=== PATIENT | male | born 1950 | race Caucasian/White ===

== ENCOUNTER → 2018-02-26 | Outpatient (CLI) | payer MEDICARE ==
--- NOTE | 2018-02-26 10:51 | RADIOLOGY REPORT (SQ) ---
EXAM DESCRIPTION: U/S THYROID/SFT TISS HD NECK COMPLETED DATE/TIME: 02/26/2018 10:42 am REASON FOR STUDY: LOCALIZED SWELLING, MASS AND LUMP, NEC (R22.1) R22.1 LOCALIZED SWELLING, MASS AND LUMP, NECK COMPARISON: None. TECHNIQUE: Dynamic and static grayscale images acquired of the localized site of clinical concern an d recorded on PACS. Additional selected color Doppler and spectral images recorded. SITE OF CONCERN: Left posterior neck. LIMITATIONS: None. FINDINGS: Circumscribed oval hypoechoic nodule in the subcutaneous tissues, measuring 1.0 x 1.6 x 2. 5 cm. Echogenicity similar to the adjacent fatty tissue. No vascularity on Doppler imaging. IMPRESSION: OVAL HYPOECHOIC NODULE IN THE SUBCUTANEOUS TISSUES WHICH HAS APPEARANCE OF A SIMPLE LIPO MA. TECHNICAL DOCUMENTATION: JOB ID: [id number] [employer]- All Rights Reserved Reading location - IP/workstation name: [email or web address]
== END ==
LOC: RAD 09:13
PROVIDERS: ATTEND Family Medicine
DX: R22.1 Localized swelling, mass and lump, neck (principal)
CPT/HCPCS: 76536

== ENCOUNTER → 2018-05-27 | Outpatient (CLI) | payer MEDICARE ==
--- NOTE | 2018-05-27 13:27 | RADIOLOGY REPORT (SQ) ---
EXAM DESCRIPTION: CT ABD/PELVIS NO ORAL OR IV COMPLETED DATE/TIME: 05/27/2018 10:31 am REASON FOR STUDY: R10.9 UNSPECIFIED ABDOMINAL PAIN R10.9 UNSPECIFIED ABDOMINAL PAIN COMPARISON: None. TECHNIQUE: CT scan of the abdomen and pelvis performed without intravenous or oral contrast. Images reviewed with lung, soft tissue, and bone windows. Reconstructed coronal and sagittal MPR images revi ewed. All images stored on PACS. All CT scanners at this facility use dose modulation, iterative reconstruction, and/or weight based d osing when appropriate to reduce radiation dose to as low as reasonably achievable (ALARA). [facility]: Dose Right [facility]: CareDose [facility]: Dose Right [facility]: Teradose 4D [facility]: [employer] RADIATION DOSE: CT Rad equipment meets quality standard of care and radiation dose reduction techniq ues were employed. CTDIvol: 5.5 mGy. DLP: 277 mGy-cm.mGy. LIMITATIONS: None. FINDINGS: LOWER CHEST: No significant findings. No nodules or infiltrates. NON-CONTRASTED LIVER, SPLEEN, ADRENALS: Evaluation limited by lack of IV contrast. No identified sign ificant masses. PANCREAS: No masses. No peripancreatic inflammatory changes. GALLBLADDER: Cholelithiasis. No secondary evidence of acute cholecystitis. RIGHT KIDNEY AND URETER: No suspicious masses. Assessment limited by lack of IV contrast. No signif icant calcifications. No hydronephrosis or hydroureter. LEFT KIDNEY AND URETER: No suspicious masses. Assessment limited by lack of IV contrast. No signifi cant calcifications. No hydronephrosis or hydroureter. AORTA AND RETROPERITONEUM: No aneurysm. No retroperitoneal masses or adenopathy. BOWEL AND PERITONEAL CAVITY: No focal bowel wall thickening. No evidence of intestinal obstruction. Scattered colonic diverticula. APPENDIX: Normal. PELVIS, BLADDER, AND ABDOMINAL WALL:No abnormal masses. No free fluid. Bladder normal. Small fact co ntaining inguinal hernias, right greater than left. BONES: No acute bony abnormality. No suspicious osseous lesions. Lower lumbar facet arthropathy. OTHER: No other significant finding. IMPRESSION: 1. No evidence of acute intra-abdominal/pelvic process. 2. Cholelithiasis without secondary evidence of acute cholecystitis. 3. Additional chronic findings as above. COMMENT: Quality ID # [id number]: Final reports with documentation of one or more dose reduction techniques (e.g., Automated exposure control, adjustment of the mA and/or kV according to patient size, use of iterative reconstruction technique) TECHNICAL DOCUMENTATION: JOB ID: [id number] [employer]- All Rights Reserved Reading location - IP/workstation name: [email or web address]
== END ==
LOC: RAD 10:42
PROVIDERS: ATTEND Family Medicine
DX: R10.9 Unspecified abdominal pain (principal)
CPT/HCPCS: 74176

== ENCOUNTER 2018-08-05 10:09 | Day surgery (SDC) | payer MEDICARE ==
[~2018-08-05 10:09] MED LIST: BUPIVACAINE HCL 0.75% INJ/PF (7.5 MG/1 ML) 10 ML SDV OS PRN; KETOROLAC TROMETHAMINE 0.45% 4 DROP/0.4 ML DROPERETTE OS PRN; LIDOCAINE 4% INJ/PF (40 MG/ML) 5 ML AMPUL OS PRN
[2018-08-05] MEDS: CYCLOPENTOLATE 0.2%/PHENYLEPHRINE 1% OPH SOLN 2 ML OS PRN ×3 (11:11→11:34)
[2018-08-05] MEDS: TROPICAMIDE 1% OPH SOLN 3 ML OS PRN ×3 (11:11→11:34)
[2018-08-05] MEDS: BESIFLOXACIN HCL 0.6% OPH SUSP 5 ML BOTTLE OS PRN ×4 (11:12→12:02)
[2018-08-05] MEDS: TETRACAINE HCL 0.5% OPH SOLN 0.6 ML DROPERETTE OS PRN ×4 (11:13→11:39)
[2018-08-05] MEDS ORDERED: MIDAZOLAM 2 MG/2 ML INJ ONE (11:30)
[2018-08-05] MEDS: CHONDR SU A NA/HYALUR INTRAOC KIT (SURGICARE) ONE ×2 (11:51)
[2018-08-05] MEDS: LIDOCAINE 1% INJ-PF (10 MG/ML) 30 ML SDV ONE ×2 (11:51)
[2018-08-05] MEDS: EPINEPHRINE INJ/PF 1 MG/1 ML AMPULE ONE ×2 (11:51)
[2018-08-05] MEDS: TOBRAMYCIN SULFATE/DEXAMETH OPH OINTMENT 3.5 GM ONE ×2 (12:02)
[2018-08-05] MEDS: DORZOLAMIDE HCL 2%/TIMOLOL MALEAT 0.5% OPH SOLN 10 ML OS PRN ×2 (12:02)
== END 2018-08-05 12:41 | disposition home or self-care (01) ==
LOC: SC 10:09
PROVIDERS: ATTEND Ophthalmology
DX: H25.12 Age-related nuclear cataract, left eye (principal); Z98.42 Cataract extraction status, left eye; E11.9 Type 2 diabetes mellitus without complications; I10 Essential (primary) hypertension; E78.00 Pure hypercholesterolemia, unspecified; R01.1 Cardiac murmur, unspecified; I49.9 Cardiac arrhythmia, unspecified; Z79.4 Long term (current) use of insulin; Z79.82 Long term (current) use of aspirin; Z79.899 Other long term (current) drug therapy
CPT/HCPCS: 66984; 82962; 00142; V2787; J2250; J3490 ×3; A9270; J0171; 142

== ENCOUNTER 2018-08-26 07:38 | Day surgery (SDC) | payer MEDICARE ==
[~2018-08-26 07:38] MED LIST changes: +BUPIVACAINE HCL 0.75% INJ/PF (7.5 MG/1 ML) 10 ML SDV OD PRN; -BUPIVACAINE HCL 0.75% INJ/PF (7.5 MG/1 ML) 10 ML SDV OS PRN; +CHONDR SU A NA/HYALUR INTRAOC KIT (SURGICARE) ONE; +DORZOLAMIDE HCL 2%/TIMOLOL MALEAT 0.5% OPH SOLN 10 ML OD PRN; +EPINEPHRINE INJ/PF 1 MG/1 ML AMPULE ONE; +KETOROLAC TROMETHAMINE 0.45% 4 DROP/0.4 ML DROPERETTE OD PRN; -KETOROLAC TROMETHAMINE 0.45% 4 DROP/0.4 ML DROPERETTE OS PRN; +LIDOCAINE 1% INJ-PF (10 MG/ML) 30 ML SDV ONE; +LIDOCAINE 4% INJ/PF (40 MG/ML) 5 ML AMPUL OD PRN; -LIDOCAINE 4% INJ/PF (40 MG/ML) 5 ML AMPUL OS PRN; +TOBRAMYCIN SULFATE/DEXAMETH OPH OINTMENT 3.5 GM ONE
[2018-08-26] MEDS: CYCLOPENTOLATE 0.2%/PHENYLEPHRINE 1% OPH SOLN 2 ML OD PRN ×3 (08:47→09:16)
[2018-08-26] MEDS: TROPICAMIDE 1% OPH SOLN 3 ML OD PRN ×3 (08:47→09:16)
[2018-08-26] MEDS: BESIFLOXACIN HCL 0.6% OPH SUSP 5 ML BOTTLE OD PRN ×3 (08:48→09:50)
[2018-08-26] MEDS: TETRACAINE HCL 0.5% OPH SOLN 0.6 ML DROPERETTE OD PRN ×3 (08:49→09:26)
[2018-08-26] MEDS ORDERED: MIDAZOLAM 2 MG/2 ML INJ ONE (09:56)
== END 2018-08-26 10:24 | disposition home or self-care (01) ==
LOC: SC 07:38
PROVIDERS: ATTEND Ophthalmology
DX: H25.11 Age-related nuclear cataract, right eye (principal); Z98.42 Cataract extraction status, left eye; E78.00 Pure hypercholesterolemia, unspecified; I10 Essential (primary) hypertension; E11.9 Type 2 diabetes mellitus without complications; R06.02 Shortness of breath; I25.10 Atherosclerotic heart disease of native coronary artery without angina pectoris; I49.9 Cardiac arrhythmia, unspecified; R01.1 Cardiac murmur, unspecified; Z79.899 Other long term (current) drug therapy; Z79.82 Long term (current) use of aspirin; Z79.4 Long term (current) use of insulin; Z79.84 Long term (current) use of oral hypoglycemic drugs
CPT/HCPCS: 82962; 00142; 66984; V2632; J2250; J3490 ×3; A9270; J0171; 142

== ENCOUNTER → 2019-11-16 | Outpatient (CLI) | payer MEDICARE ==
[2019-11-16 09:45] LABS: ABSOLUTE LYMPHOCYTES (AUTO) 1.3 10^3/uL (0.5-4.7); ABSOLUTE MONOCYTES (AUTO) 0.4 10^3/uL (0.1-1.4); ABSOLUTE NEUT (AUTO) 3.1 10^3/uL (1.7-8.2); BASOPHILS % (AUTO) 0.7 % (0-2); EOSINOPHILS % (AUTO) 0.9 % (0-6); HEMOGLOBIN 13.8 g/dL (13.5-17.0); LYMPHOCYTES % (AUTO) 26.5 % (13-45); MEAN CORPUSCULAR HGB CONC 34.4 g/dL (32.0-36.0); MEAN CORPUSCULAR VOLUME 96 fl (80-97); MONOCYTES % (AUTO) 8.1 % (3-13); PLATELET COUNT 118 10^3/uL (150-450); RED BLOOD COUNT 4.17 10^6/uL (4.35-5.55); RED CELL DISTRIBUTION WIDTH 13.8 % (11.5-14.0); SEGMENTED NEUTROPHILS % (AUTO) 63.8 % (42-78); TOTAL CELLS COUNTED % (AUTO) 100 %; WHITE BLOOD COUNT 4.9 10^3/uL (4.0-10.5)
[2019-11-16 10:06] LABS: ALBUMIN 4.5 g/dL (3.5-5.0); ALKALINE PHOSPHATASE 59 U/L (38-126); ANION GAP 13 (5-19); ASPARTATE AMINO TRANSFERASE 73 U/L (17-59); BILIRUBIN,DIRECT 0.4 mg/dL (0.0-0.4); BLOOD UREA NITROGEN 24 mg/dL (7-20); CALCIUM 9.6 mg/dL (8.4-10.2); CARBON DIOXIDE 27 mmol/L (22-30); CHLORIDE 100 mmol/L (98-107); CHOLESTEROL 159.62 mg/dL (0-200); GLUCOSE 138 mg/dL (75-110); POTASSIUM 4.4 mmol/L (3.6-5.0); TOTAL PROTEIN 7.4 g/dL (6.3-8.2); TRIGLYCERIDES 86 mg/dL (<150)
[2019-11-16 10:18] LABS: DIRECT LDL 90 mg/dL (<100)
[2019-11-17 11:38] LABS: CREATININE URINE 229.1 mg/dL (Not Estab.); MICROALBUMIN URINE 22.4 ug/mL (Not Estab.)
== END ==
LOC: OD 08:22
PROVIDERS: ATTEND Family Medicine
DX: E78.5 Hyperlipidemia, unspecified (principal); E11.51 Type 2 diabetes mellitus with diabetic peripheral angiopathy without gangrene; E55.9 Vitamin D deficiency, unspecified; Z79.82 Long term (current) use of aspirin; Z79.899 Other long term (current) drug therapy
CPT/HCPCS: 36415; 80053; 80061; 82043; 82306; 82570; 83036; 85025

== ENCOUNTER 2019-11-18 10:34 | Observation (INO) | payer MEDICARE ==
[2019-11-18] MEDS ORDERED: METOPROLOL TARTRATE PF/INJ 5 MG/5 ML SDV IV ONE (11:07)
--- NOTE | 2019-11-18 11:18 | ER Document Report ---
ED General - General Chief Complaint: Irregular Pulse Stated Complaint: LIGHTHEADED,FAST HEART RATE Time Seen by Provider: 11/18/19 10:48 Primary Care Provider: CHIQUIS FIERRO MD [ACTIVE STAFF] - Follow up as needed TRAVEL OUTSIDE OF THE [place] IN LAST 30 DAYS: No - HPI Notes: Chief complaint: Tachycardia History of present illness: 69-year-old male seen at this time for evaluation of tachycardia. This gentleman is 6 years status post aortic valve replacement with a tissue valve [facility]. He subsequently was readmitted to [place] with a bowel obstruction requiring exploratory laparotomy and at that time he had an episode of paroxysmal atrial flutter. He has had no recurrence of problems until now. Patient was in for a visit with his primary care physician, Dr. Fierro and when he got to the office today was noted to be tachycardic at a rate of about 160 although he was asymptomatic with this. They recorded an EKG in the office and felt that this was atrial flutter and sent him directly to the emergency department. Patient denies: Chest pain, shortness of breath, cough, fever, nausea/vomiting, diarrhea. Good oral intake. Denies any history of thyroid problems. Patient says he consumes 2 to 4 ounces of alcohol per day. He denies any drug use. He has never been a cigarette smoker. Patient is taking an unknown dose of metoprolol at home. He is also on aspirin. He is not on any other type of anticoagulant. Denies any other cardiac medications. 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 He sees a pain management doctor and has been taking "some muscle relaxers" and has received steroid injections from them also. Current medications per primary care physician: Aspirin 81 mg daily Tylenol 325 as needed Vitamin D 2000 units daily Tizanidine 4 mg twice daily as needed subcu weekly as directed Artificial tears as needed Metoprolol succinate ER 25 mg daily Pioglitazone 45 mg every morning Patient indicates local methods engineer is Dr. Heri Guadalupe. - Related Data Allergies/Adverse Reactions: codeine Allergy (Verified 08/03/18 14:42) losartan Allergy (Verified 08/03/18 14:42) metformin Allergy (Verified 08/03/18 14:42) naproxen Allergy (Verified 08/03/18 14:42) Past Medical History - General Information source: Patient, Dr. Rodas, [facility] Records - Social History Smoking Status: Never Smoker Frequency of alcohol use: Social Drug Abuse: None Lives with: Spouse/Significant other Family History: Reviewed & Not Pertinent - Past Medical History Cardiac Medical History: Reports: Hx Hypertension - MEDICATED Denies: Hx Heart Attack Pulmonary Medical History: Reports: None Denies: Hx Asthma Neurological Medical History: Reports: None. Denies: Hx Cerebrovascular Accident, Hx Seizures Endocrine Medical History: Reports: Hx Diabetes Mellitus Type 2. Denies: Hx Hyperthyroidism, Hx Hypothyroidism Malignancy Medical History: Reports Hx Skin Cancer GI Medical History: Reports: Other - Previous bowel obstruction. Denies: Hx Hepatitis, Hx Hiatal Hernia, Hx Ulcer Musculoskeletal Medical History: Reports Hx Arthritis Skin Medical History: Reports Other - Treatment for precancerous lesions facial area by dermatology Psychiatric Medical History: Reports: None Infectious Medical History: Denies: Hx Hepatitis Past Surgical History: Reports: Hx Bowel Surgery, Hx Cardiac Surgery. Denies: Hx Open Heart Surgery, Hx Pacemaker Review of Systems - Review of Systems Notes: Constitutional: Negative for fever. HENT: Negative for sore throat. Eyes: Negative for visual changes. Cardiovascular: Negative for chest pain. Respiratory: Negative for shortness of breath. Gastrointestinal: Negative for abdominal pain, vomiting or diarrhea. Genitourinary: Negative for dysuria. Musculoskeletal: Chronic back pain. Skin: Facial precancerous lesions under treatment with topical fluorouracil. Neurological: Negative for headaches, focal weakness. Recent tingling of lower extremities attributed to diabetic peripheral neuropathy. 10 point ROS negative except as marked above and in HPI. Physical Exam - Vital signs Vitals: Resp Pulse Ox 25 H 99 11/18/19 10:51 11/18/19 10:51 - Notes Notes: GENERAL: Well-developed well-nourished male approximately stated age appearing in no acute distress. SKIN: Chronic hypopigmentation over the forehead area related to actinic change. Good turgor no rashes. HEAD: Normocephalic atraumatic. EYES: PERRLA. EOMI. Conjunctivae and sclerae clear. EARS: CANALS AND TMS CLEAR. NOSE: CLEAR. MOUTH: Moist mucosa. Good dentition. No stridor or edema. No drooling. NECK: Supple. No masses or thyromegaly. No adenopathy. Carotids 2+ without bruits. No JVD. BACK: Symmetrical without tenderness. CHEST: Respirations unlabored. Breath sounds clear and symmetrical. HEART: Tachycardic regular rhythm. No murmur gallop or rub. Surgical scar right anterior chest area. ABDOMEN: Surgical scar present. Soft nontender without masses, organomegaly or rebound. Bowel sounds normally active. No bruits. GENITALIA: Deferred. EXTREMITIES: Moderate degenerative changes intra-phalangeal joints of both hands. No edema. No calf tenderness. Cap refill less than 1.5 seconds. Dorsalis pedis and posterior tibial pulses 3+ and symmetrical. NEUROLOGICAL: GCS 15. Alert and oriented x3. Normal gait. Fluent speech. Cranial nerves II through XII intact. Sensorimotor and cerebellar normal. Normal tone. PSYCHIATRIC: Appropriate affect. Course - Re-evaluation Re-evalutation: 11/18/19 11:43 Valsalva failed to slow his rate. Adenosine produced transient ventricular slowing revealing atrial fibrillation his underlying rhythm. He was given 15 mg of metoprolol IV. This also did not slow his rate. His blood pressures mildly elevated 155/97. We going to give him some IV diltiazem at this time. 11/18/19 12:13 11/18/19 12:53 Remains in atrial fibrillation/flutter but he now has a controlled ventricular rate of 84. We note that his magnesium level is 1.5 and he will be given some IV magnesium supplementation. We are still awaiting completion of other pending lab studies at this time. Patient is currently asymptomatic. 11/18/19 14:31 Patient been back and forth with a high heart rate up to 160. Now on 15 mg/h of diltiazem. I also have given him IV magnesium and he got a dose of digoxin 0.25 mg IV. Currently his ventricular rate is 80 although he remains in atrial fib. He remains asymptomatic. Patient's thyroid profile is normal. His transaminase values are mildly elevated and his magnesium was low at 1.5. Aced on his history I think is primarily a "holiday heart syndrome" agitation probably related to recent incre ase in alcohol intake. His troponin was minimally elevated but not reaching the threshold for myocardial injury. I have paged his methods engineer Dr. Guadalupe review findings with him. They are to speak with the hospitalist regarding admission. - Vital Signs Vital signs: Temp Pulse Resp BP Pulse Ox 16 101/65 97 11/18/19 13:20 11/18/19 13:20 11/18/19 13:20 - Laboratory Result Diagrams: 11/18/19 10:58 11/18/19 10:58 Laboratory results interpreted by me: 11/18/19 11/18/19 11/18/19 10:58 10:58 10:58 RBC 4.34 L MCH 33.5 H Plt Count 132 L Glucose 139 H Magnesium 1.5 L Direct Bilirubin 0.5 H AST 63 H ALT 58 H NT-Pro-B Natriuret Pep 2260 H - EKG Interpretation by Me Additional EKG results interpreted by me: 11/18/19 11:26 Twelve-lead EKG reviewed by me contemporaneously: 1044 hrs. Indication for study: Tachycardia Rhythm: Narrow complex tachycardia differential diagnosis to include atrial flutter with 2-1 block, atrial fibrillation with regularization, SVT Rate: Ventricular 162 Intervals: QRS interval 80 ms QRS axis: [address]/T wave changes: Minor repolarization changes which are probably rate related Comparison with prior tracing: None available Interpretation: Narrow complex tachycardia 11/18/19 14:49 EKG #2 Twelve-lead EKG reviewed by me contemporaneously: 1239 hours Indication for study: Tachycardia Rhythm: Atrial flutter with 4 1 block Rate: 81 Intervals: Normal QRS axis: +[address]/T wave changes: Nonspecific inferior T wave changes Comparison with prior tracing: Difficult slowing of rate since earlier study 1044 hrs. today Interpretation: Atrial flutter with controlled ventricular response Critical Care Note - Critical Care Note Total time excluding time spent on procedures (mins): 90 - Valsalva x3 with no improvement. Adenosine IV revealed underlying atrial fibrillation. She was subsequently given IV metoprolol with no slowing of rate. He will be treated with IV push and drip of diltiazem. Discharge - Discharge Clinical Impression: Atrial fibrillation with RVR new onset, Hypomagnesemia, Holiday heart syndrome Alcoholic hepatitis Qualifiers: Ascites presence: without ascites Qualified Code(s): K70.10 - Alcoholic hepatitis without ascites Condition: Good Disposition: ADMITTED INPATIENT Admitting Provider: Kiki (Hospitalist) Unit Admitted: Telemetry Referrals: CHIQUIS FIERRO MD [ACTIVE STAFF] - Follow up as needed
[2019-11-18] MEDS ORDERED: DILTIAZEM HCL INJ 25 MG/5 ML VIAL IV ONE ×3 (11:44→13:39)
[2019-11-18] MEDS ORDERED: ADENOSINE INJ/PF 6 MG/2 ML SDV IV ONE ×3 (11:55→12:18)
--- NOTE | 2019-11-18 12:17 | RADIOLOGY REPORT (SQ) ---
EXAM DESCRIPTION: CHEST SINGLE VIEW IMAGES COMPLETED DATE/TIME: 11/18/2019 11:37 am REASON FOR STUDY: Atrial flutter COMPARISON: None. EXAM PARAMETERS: NUMBER OF VIEWS: One view. TECHNIQUE: Single frontal radiographic view of the chest acquired. RADIATION DOSE: NA LIMITATIONS: None. FINDINGS: LUNGS AND PLEURA: No opacities, masses or pneumothorax. No pleural effusion. MEDIASTINUM AND HILAR STRUCTURES: No masses. Contour normal. HEART AND VASCULAR STRUCTURES: Heart normal in size. Normal vasculature. BONES: No acute findings. HARDWARE: Sternotomy wires. OTHER: No other significant finding. IMPRESSION: NO ACUTE RADIOGRAPHIC FINDING IN THE CHEST. TECHNICAL DOCUMENTATION: JOB ID: [id number] 2010 [employer]- All Rights Reserved Reading location - IP/workstation name: [email or web address]
[2019-11-18 12:18] LABS: ABSOLUTE LYMPHOCYTES (AUTO) 1.2 10^3/uL (0.5-4.7); ABSOLUTE MONOCYTES (AUTO) 0.6 10^3/uL (0.1-1.4); ABSOLUTE NEUT (AUTO) 4.3 10^3/uL (1.7-8.2); BASOPHILS % (AUTO) 0.6 % (0-2); EOSINOPHILS % (AUTO) 0.5 % (0-6); HEMATOCRIT 41.6 % (37.9-51.0); HEMOGLOBIN 14.5 g/dL (13.5-17.0); MEAN CORPUSCULAR HEMOGLOBIN 33.5 pg (27.0-33.4); MEAN CORPUSCULAR VOLUME 96 fl (80-97); PLATELET COUNT 132 10^3/uL (150-450); RED BLOOD COUNT 4.34 10^6/uL (4.35-5.55); RED CELL DISTRIBUTION WIDTH 13.8 % (11.5-14.0); SEGMENTED NEUTROPHILS % (AUTO) 68.9 % (42-78); TOTAL CELLS COUNTED % (AUTO) 100 %; WHITE BLOOD COUNT 6.2 10^3/uL (4.0-10.5)
[2019-11-18] MEDS ORDERED: NORMAL SALINE 1000 ML 1,000 ML IV ONE (12:19)
[2019-11-18] MEDS: DILTIAZEM HCL/D5W 125 MG/125 ML RTUINJ IV PRN ×2 (12:28→20:43)
[2019-11-18 12:33] LABS: PROTHROMBIN TIME 14.4 SEC (11.4-15.4)
[2019-11-18 12:34] LABS: PARTIAL THROMBOPLASTIN TIME 32.9 SEC (23.5-35.8)
[2019-11-18 12:36] LABS: ALBUMIN 4.7 g/dL (3.5-5.0); ALKALINE PHOSPHATASE 70 U/L (38-126); ANION GAP 12 (5-19); ASPARTATE AMINO TRANSFERASE 63 U/L (17-59); BILIRUBIN,DIRECT 0.5 mg/dL (0.0-0.4); BILIRUBIN,TOTAL 1.2 mg/dL (0.2-1.3); BLOOD UREA NITROGEN 19 mg/dL (7-20); CALCIUM 9.8 mg/dL (8.4-10.2); CARBON DIOXIDE 26 mmol/L (22-30); CHLORIDE 101 mmol/L (98-107); GLUCOSE 139 mg/dL (75-110); POTASSIUM 4.3 mmol/L (3.6-5.0); TOTAL PROTEIN 7.8 g/dL (6.3-8.2)
[2019-11-18 12:37] LABS: ALCOHOL < 10 mg/dL (NONE DETECTED)
[2019-11-18] MEDS ORDERED: MAGNESIUM SULFATE/D5W 1 GM/100 ML RTUPB IV ONE ×2 (12:52→16:30)
[2019-11-18 12:56] LABS: TROPONIN I 0.042 ng/mL
[2019-11-18] MEDS ORDERED: DIGOXIN INJ 0.5 MG/2 ML AMPULE IV ONE ×2 (13:38→20:17)
[2019-11-18] MEDS ORDERED: METOPROLOL TARTRATE PF/INJ 5 MG/5 ML SDV IV PRN (15:36)
[2019-11-18] MEDS ORDERED: LORAZEPAM INJ 2 MG/1 ML VIAL IV PRN (15:36)
[2019-11-18] MEDS ORDERED: HYDRALAZINE HCL INJ/PF 20 MG/1 ML SDV IV PRN (15:36)
[2019-11-18 15:41] LABS: APPEARANCE,URINE CLEAR; BILIRUBIN,URINE NEGATIVE (NEGATIVE); COLOR,URINE YELLOW; GLUCOSE, URINE NEGATIVE (NEGATIVE); KETONES,URINE TRACE mg/dL (NEGATIVE); PROTEIN,URINE NEGATIVE (NEGATIVE); URINE SPECIFIC GRAVITY 1.018
[2019-11-18] MEDS ORDERED: GLUCAGON,HUMAN RECOMB 1 MG INJ IM PRN (15:41)
[2019-11-18] MEDS ORDERED: DEXTROSE 40% GEL 15 GM TUBE PO PRN ×2 (15:41)
[2019-11-18] MEDS ORDERED: DEXTROSE 50%-WATER 25 GM/50 ML DISP.SYRIN IV PRN ×2 (15:41)
--- NOTE | 2019-11-18 15:44 | PDOC H&P ---
History of Present Illness History of Present Illness: LISA POWERS is a 69 year old male past medical history of atrial fibrillation status post ablation a year ago at Counts include [facility] beds at the [facility], history of bicuspid aortic valve status post aortic valve replacement x1 year, history of aortic aneurysm, diabetes, EtOH abuse, who was sent to ED by his PCP after being found having an abnormal heart rate. Patient is stating that occasionally he feels lightheaded otherwise denies any palpitation, chest pain, syncope, presyncope, nausea, vomiting, headache, focal neurological symptoms, diarrhea, constipation. In ED he was noted to be in supraventricular tachycardia, was given adenosine and was noted to have underlying A. fib RVR, was given multiple doses of digoxin which controlled his rate and was started on Cardizem drip, hospitalist consulted for admission. His quality assurance coach Dr. Guadalupe was also consulted who has agreed to see him. Past Medical History Cardiac Medical History: Reports: Hyperlipidema, Hypertension - MEDICATED Denies: Myocardial Infarction Pulmonary Medical History: Reports: None Denies: Asthma Neurological Medical History: Reports: None Denies: Seizures Endocrine Medical History: Reports: Diabetes Mellitus Type 2 Denies: Hyperthyroidism, Hypothyroidism Malignancy Medical History: Reports: Skin Cancer GI Medical History: Reports: Other - Previous bowel obstruction Denies: Hepatitis, Hiatal Hernia Musculoskeltal Medical History: Reports: Arthritis Skin Medical History: Reports: Other - Treatment for precancerous lesions facial area by dermatology Psychiatric Medical History: Reports: None Hematology: Denies: Anemia, Sickle Cell Disease Past Surgical History Past Surgical History: Reports: Orthopedic Surgery - finger,elbow Denies: Pacemaker Social History Lives with: Spouse/Significant other Smoking Status: Never Smoker Family History Family History: Reviewed & Not Pertinent Parental Family History Reviewed: Yes Children Family History Reviewed: Yes Sibling(s) Family History Reviewed.: Yes Medication/Allergy Home Medications: Acetaminophen [Tylenol 325 mg Tablet] 650 mg PO Q6HP PRN 08/03/18 Aspirin [Ecotrin] 81 mg PO DAILY 08/03/18 Cholecalciferol (Vitamin D3) [Vitamin D3 2000 unit Tablet] 2,000 unit PO DAILY 08/03/18 Dulaglutide [Trulicity] 1.5 mg SQ Q7D 08/03/18 Pioglitazone HCl 45 mg PO QAM 08/03/18 Tizanidine HCl [Zanaflex] 4 mg PO Q8HP PRN 08/03/18 Metoprolol Succinate [Toprol Xl 25 mg Tab.sr] 25 mg PO DAILY 11/18/19 Allergies/Adverse Reactions: codeine Allergy (Verified 08/03/18 14:42) losartan Allergy (Verified 08/03/18 14:42) metformin Allergy (Verified 08/03/18 14:42) naproxen Allergy (Verified 08/03/18 14:42) Review of Systems Review of Systems: as per hpi Physical Exam Vital Signs: Temp Pulse Resp BP Pulse Ox 16 101/65 97 11/18/19 13:20 11/18/19 13:20 11/18/19 13:20 Intake & Output 11/17/19 11/18/19 11/19/19 06:59 06:59 06:59 Intake Total 1108 Balance 1108 Weight 80.286 kg General appearance: PRESENT: no acute distress, well-developed, well-nourished Head exam: PRESENT: atraumatic, normocephalic Respiratory exam: PRESENT: clear to auscultation evan. ABSENT: rales, rhonchi, wheezes Cardiovascular exam: PRESENT: irregular rhythm. ABSENT: diastolic murmur, rubs, systolic murmur GI/Abdominal exam: PRESENT: normal bowel sounds, soft. ABSENT: distended, guarding, mass, organolmegaly, rebound, tenderness Neurological exam: PRESENT: alert, awake, oriented to person, oriented to place, oriented to time, oriented to situation, CN II-XII grossly intact. ABSENT: motor sensory deficit Results Laboratory Results: 11/18/19 10:58 11/18/19 10:58 11/18/19 11/18/19 11/18/19 10:58 10:58 10:58 WBC 6.2 RBC 4.34 L Hgb 14.5 Hct 41.6 MCV 96 MCH 33.5 H MCHC 35.0 RDW 13.8 Plt Count 132 L Seg Neutrophils % 68.9 Sodium 138.6 Potassium 4.3 Chloride 101 Carbon Dioxide 26 Anion Gap 12 BUN 19 Creatinine 0.93 Est GFR ( Amer) > 60 Glucose 139 H Calcium 9.8 Magnesium 1.5 L Total Bilirubin 1.2 AST 63 H Alkaline Phosphatase 70 Total Protein 7.8 Albumin 4.7 TSH 1.07 11/18/19 10:58 Troponin I 0.042 NT-Pro-B Natriuret Pep 2260 H Impressions: Chest X-Ray 11/18/19 11:09 IMPRESSION: NO ACUTE RADIOGRAPHIC FINDING IN THE CHEST. Assessment and Plan - Diagnosis (1) Atrial fibrillation Qualifiers: Atrial fibrillation type: paroxysmal Qualified Code(s): I48.0 - Paroxysmal atrial fibrillation Is this a current diagnosis for this admission?: Yes Plan: History of atrial fibrillation status post ablation. Currently on beta-blockers, not anticoagulated. Admit to IMCU, Cardizem drip, PRN metoprolol, weight dosed Lovenox, 2D echo, cardiology consult. (2) Elevated troponin Is this a current diagnosis for this admission?: Yes Plan: Denies any history of CAD. Denies any chest pain palpitation or lighth eadedness. Likely due to demand mismatch. Antiplatelets, beta-blockers, MOUNA, statins, trend troponins. (3) Aortic valve replaced Is this a current diagnosis for this admission?: Yes Plan: History of bicuspid aortic valve, status post aortic bioprosthetic valve replacement. Denies any chest or palpitation, denies any syncope or presyncope. Outpatient PCP and cardiology follow-up. (4) ETOH abuse Is this a current diagnosis for this admission?: Yes Plan: Denies any history of alcohol intoxication or hospitalization for EtOH abuse. Thiamine, folic acid, multivitamin, benzodiazepines, DT precautions. (5) Diabetes Qualifiers: Diabetes mellitus type: type 2 Is this a current diagnosis for this admission?: Yes Plan: Diabetic diet, sliding scale insulin, basal and prandial insulin. Accu-Chek. Hypoglycemia protocol. Outpatient PCP and cardio follow-up. - Time Time Spent with patient: 35 or more minutes Medications reviewed and adjusted accordingly: Yes Anticipated Discharge Disposition: Home, Self Care Anticipated Discharge Timeframe: within 72 hours
[2019-11-18] MEDS ORDERED: MULTIVITAMIN (INFANT) DROPS 50 ML PO SCH (15:45)
[2019-11-18] MEDS ORDERED: MULTIVITAMIN ORAL LIQUID 60 ML PO SCH (15:45)
[2019-11-18 15:57] LABS: URINE AMPHETAMINES SCREEN NEGATIVE; URINE BARBITURATES SCREEN NEGATIVE; URINE BENZODIAZEPINES SCREEN NEGATIVE; URINE COCAINE SCREEN NEGATIVE; URINE MARIJUANA (THC) SCREEN NEGATIVE; URINE METHADONE SCREEN NEGATIVE; URINE PHENCYCLIDINE SCREEN NEGATIVE
[2019-11-18 16:15] LABS: CHOLESTEROL 157.37 mg/dL (0-200); TRIGLYCERIDES 75 mg/dL (<150)
[2019-11-18 16:27] LABS: DIRECT LDL 88 mg/dL (<100)
[2019-11-18] MEDS: INSULIN LISPRO 100 UNIT/ML 3 ML VIAL SUBCUT SCH ×2 (17:12→21:52)
[2019-11-18] MEDS: FOLIC ACID 1 MG TABLET PO SCH (17:20)
[2019-11-18] MEDS: ASPIRIN 81 MG TABLET, CHEWABLE PO SCH (17:20)
[2019-11-18] MEDS: THIAMINE HCL 100 MG TABLET PO SCH (17:20)
[2019-11-18] MEDS: ENOXAPARIN SODIUM INJ 80 MG/0.8 ML DISP.SYRIN SUBCUT SCH (17:20)
[2019-11-18] MEDS: MULTIVITAMIN TABLET PO SCH (17:20)
[2019-11-18] MEDS: NORMAL SALINE 1000 ML 1,000 ML IV PRN (17:57)
--- NOTE | 2019-11-18 19:22 | EKG REPORT ---
SEVERITY:- ABNORMAL ECG - A-FLUTTER W/ PREDOM 4:1 AV BLOCK, A-RATE 326 NONSPECIFIC T ABNORMALITIES, INFERIOR LEADS : Confirmed by: Ami Matt MD 18-Nov-2019 19:21:56
--- NOTE | 2019-11-18 19:24 | EKG REPORT ---
SEVERITY:- ABNORMAL ECG - SUPRAVENTRICULAR TACHYCARDIA MOST LIKELY ATRIAL FLUTTER REPOLARIZATION ABNORMALITY, PROB RATE RELATED IRBBB : Confirmed by: Ami Matt MD 18-Nov-2019 19:23:04
[2019-11-18] MEDS: IPRATROPIUM/ALBUTEROL 0.5-2.5 MG/3 ML AMPUL NEB SCH (19:44)
[2019-11-18] MEDS ORDERED: INSULIN GLARGINE,HUM.REC.ANLOG 1,000 UNIT/10 ML VIAL (PYX) SUBCUT ONE (21:51)
[2019-11-18] MEDS: INSULIN GLARGINE,HUM.REC.ANLOG 1,000 UNIT/10 ML VIAL SUBCUT SCH (21:53)
[2019-11-18] MEDS: FAMOTIDINE 20 MG TABLET PO SCH (21:53)
[2019-11-18] MEDS: METOPROLOL SUCCINATE 25 MG TAB.SR.24H PO SCH (21:53)
[2019-11-19] MEDS: IPRATROPIUM/ALBUTEROL 0.5-2.5 MG/3 ML AMPUL NEB SCH ×2 (01:56→07:53)
[2019-11-19] MEDS: DILTIAZEM HCL/D5W 125 MG/125 ML RTUINJ IV PRN ×2 (04:20→12:11)
[2019-11-19] MEDS: ENOXAPARIN SODIUM INJ 80 MG/0.8 ML DISP.SYRIN SUBCUT SCH (05:00)
[2019-11-19] MEDS: NORMAL SALINE 1000 ML 1,000 ML IV PRN (06:43)
[2019-11-19 06:50] LABS: APPEARANCE,URINE CLEAR; BILIRUBIN,URINE NEGATIVE (NEGATIVE); COLOR,URINE YELLOW; GLUCOSE, URINE NEGATIVE (NEGATIVE); KETONES,URINE TRACE mg/dL (NEGATIVE); LEUKOCYTE ESTERASE,URINE NEGATIVE (NEGATIVE); NITRITE,URINE NEGATIVE (NEGATIVE); PROTEIN,URINE NEGATIVE (NEGATIVE); UROBILINOGEN,URINE NEGATIVE mg/dL (<2.0)
[2019-11-19] MEDS ORDERED: INFLUENZA QUAD (6MOS+) 2020-21 VAC 0.5 ML SYR IM ONE (08:00)
[2019-11-19] MEDS: INSULIN LISPRO 100 UNIT/ML 3 ML VIAL SUBCUT SCH ×4 (08:00→21:49)
[2019-11-19 09:02] LABS: ABSOLUTE LYMPHOCYTES (AUTO) 0.9 10^3/uL (0.5-4.7); ABSOLUTE MONOCYTES (AUTO) 0.4 10^3/uL (0.1-1.4); ABSOLUTE NEUT (AUTO) 3.1 10^3/uL (1.7-8.2); BASOPHILS % (AUTO) 0.9 % (0-2); EOSINOPHILS % (AUTO) 0.9 % (0-6); HEMATOCRIT 36.7 % (37.9-51.0); HEMOGLOBIN 12.8 g/dL (13.5-17.0); LYMPHOCYTES % (AUTO) 20.7 % (13-45); MEAN CORPUSCULAR HEMOGLOBIN 33.3 pg (27.0-33.4); MEAN CORPUSCULAR HGB CONC 34.9 g/dL (32.0-36.0); MEAN CORPUSCULAR VOLUME 96 fl (80-97); PLATELET COUNT 108 10^3/uL (150-450); RED BLOOD COUNT 3.85 10^6/uL (4.35-5.55); RED CELL DISTRIBUTION WIDTH 14.1 % (11.5-14.0); SEGMENTED NEUTROPHILS % (AUTO) 68.5 % (42-78); TOTAL CELLS COUNTED % (AUTO) 100 %; WHITE BLOOD COUNT 4.5 10^3/uL (4.0-10.5)
[2019-11-19 09:27] LABS: ALBUMIN 3.8 g/dL (3.5-5.0); ALKALINE PHOSPHATASE 57 U/L (38-126); ANION GAP 10 (5-19); ASPARTATE AMINO TRANSFERASE 47 U/L (17-59); BILIRUBIN,DIRECT 0.4 mg/dL (0.0-0.4); BLOOD UREA NITROGEN 13 mg/dL (7-20); CALCIUM 8.9 mg/dL (8.4-10.2); CARBON DIOXIDE 21 mmol/L (22-30); CHLORIDE 107 mmol/L (98-107); GLUCOSE 106 mg/dL (75-110); POTASSIUM 4.1 mmol/L (3.6-5.0); TOTAL PROTEIN 6.4 g/dL (6.3-8.2)
[2019-11-19] MEDS ORDERED: DIGOXIN 0.25 MG TABLET PO SCH (10:00)
[2019-11-19] MEDS: FOLIC ACID 1 MG TABLET PO SCH (10:52)
[2019-11-19] MEDS: ASPIRIN 81 MG TABLET, CHEWABLE PO SCH (10:53)
[2019-11-19] MEDS: METOPROLOL SUCCINATE 25 MG TAB.SR.24H PO SCH (10:53)
[2019-11-19] MEDS: FAMOTIDINE 20 MG TABLET PO SCH ×2 (10:53→21:53)
[2019-11-19] MEDS: THIAMINE HCL 100 MG TABLET PO SCH (10:53)
[2019-11-19] MEDS: MULTIVITAMIN TABLET PO SCH (10:53)
--- NOTE | 2019-11-19 13:08 | PDOC CONSULTATION ---
Consultation Consult Date: 11/19/19 Attending physician:: ALEXANDER GARZA Provider Consulted: RAYRAY BERNARD Consult reason:: Aib/flutter History of Present Illness Admission Date/PCP: 11/18/19 15:53 History of Present Illness: LISA POWERS is a 69 year old male with history of type 2 diabetes, GERD, erectile dysfunction, hyperlipidemia intolerant to statins due to myositis, atrial flutter status post ablation in July 2013 at [facility] and aortic valve stenosis status post AVR on 01/18/13 with a 25 mm Harper tissue valve who is consulted to our service for evaluation of atrial fibrillation. He had been in his usual state of health until yesterday when, during a routine visit to his primary care provider, he was found to be in rapid atrial fibrill ation however he was completely asymptomatic. In our emergency room ED he was noted to be in a narrow complex tachycardia suspected to be SVT therefore he was given adenosine and was noted to have underlying A. fib RVR, was given multiple doses of digoxin which controlled his rate and was started on Cardizem drip. He had been doing well since admission and his heart rate had been very well contr olled on maximum doses of diltiazem drip but unfortunately he received a breathing treatment at which point his heart rate became uncontrolled. After several hours his heart rate has decreased and is much better controlled now. Physical exam on 11/19/2019: GENERAL: Pleasant and conversational. Oriented x3 with normal mood. Not in acute distress. Well groomed and well developed. HEENT: Normocephalic, atraumatic. Pupils equal. Sclerae anicteric. Oropharynx moist. NECK: No JVD. No carotid bruits. LUNGS: Clear to auscultation bilaterally. Normal respiratory effort without the use of accessory muscles or intercostal retractions. CARDIOVASCULAR: Irregularly irregular rate and rhythm without murmurs, rubs, or gallops. PMI not displaced. ABDOMEN: No masses or tenderness to palpation. No bruit. No splenomegaly or hepatomegaly. No abdominal aorta bruit noted. EXTREMITIES: No edema, no cyanosis, no clubbing. +2 pulses femoral and pedal pulses bilaterally. SKIN: No lesions or rashes. MUSCULOSKELETAL: No chest tenderness to palpation. NEUROLOGIC: Nonfocal. No gross sensory or motor deficits bilateral upper or lower extremities. Cardiac studies: Echocardiogram on 12/24/18: -LV is normal in size. -Mild concentric LVH. -EF 60-65%. -Grade 3 diastolic dysfunction. -Septal motion consistent with postop state. -Mild LAE. -Mild to moderate ALESSANDRA. -Mild MR, mild TR. -Mildly dilated aortic root at 4.0 cm. -Mildly dilated proximal ascending aorta at 4.0 cm. Echocardiogram on 06/17/18: -Difficult study for interpretation. -Concentric remodeling. -EF 60-65%. -Grade 3 diastolic dysfunction. -Normal wall motion abnormalities. -Moderate TR. -Prosthetic tissue valve in the aortic position with normal gradient and no perivalvular leak. -Mildly dilated ascending aorta at 4.0 cm. -Mildly dilated aortic root at 4.0 cm. Past Medical History Cardiac Medical History: Reports: Hyperlipidema, Hypertension - MEDICATED Denies: Myocardial Infarction Pulmonary Medical History: Reports: None Denies: Asthma Neurological Medical History: Reports: None Denies: Seizures Endocrine Medical History: Reports: Diabetes Mellitus Type 2 Denies: Hyperthyroidism, Hypothyroidism Malignancy Medical History: Reports: Skin Cancer GI Medical History: Reports: Other - Previous bowel obstruction Denies: Hepatitis, Hiatal Hernia Musculoskeltal Medical History: Reports: Arthritis Skin Medical History: Reports: Other - Treatment for precancerous lesions facial area by dermatology Psychiatric Medical History: Reports: None Denies: Depression Hematology: Denies: Anemia, Sickle Cell Disease Past Surgical History Past Surgical History: Reports: Orthopedic Surgery - finger,elbow Denies: Pacemaker Social History Lives with: Spouse/Significant other Smoking Status: Never Smoker Frequency of Alcohol Use: None Hx Recreational Drug Use: No Drugs: None Hx Prescription Drug Abuse: No Family History Family History: Reviewed & Not Pertinent Parental Family History Reviewed: Yes Children Family History Reviewed: Yes Sibling(s) Family History Reviewed.: Yes Medication/Allergy Home Medications: Acetaminophen [Tylenol 325 mg Tablet] 650 mg PO Q6HP PRN 08/03/18 Aspirin [Ecotrin] 81 mg PO DAILY 08/03/18 Cholecalciferol (Vitamin D3) [Vitamin D3 2000 unit Tablet] 2,000 unit PO DAILY 08/03/18 Dulaglutide [Trulicity] 1.5 mg SQ Q7D 08/03/18 Pioglitazone HCl 45 mg PO QAM 08/03/18 Tizanidine HCl [Zanaflex] 4 mg PO Q8HP PRN 08/03/18 Metoprolol Succinate [Toprol Xl 25 mg Tab.sr] 25 mg PO DAILY 11/18/19 Allergies/Adverse Reactions: codeine Allergy (Verified 08/03/18 14:42) losartan Allergy (Verified 08/03/18 14:42) metformin Allergy (Verified 08/03/18 14:42) naproxen Allergy (Verified 08/03/18 14:42) Physical Exam Vital Signs: Temp Pulse Resp BP Pulse Ox 98.2 F 80 16 106/62 96 11/19/19 04:56 11/19/19 06:00 11/19/19 04:56 11/19/19 06:00 11/19/19 04:56 Intake & Output 11/17/19 11/18/19 11/19/19 06:59 06:59 06:59 Intake Total 2867 Output Total 600 Balance 2267 Weight 80.286 kg Results Laboratory Results: 11/18/19 10:58 11/18/19 10:58 11/18/19 11/18/19 11/18/19 10:58 10:58 10:58 WBC 6.2 RBC 4.34 L Hgb 14.5 Hct 41.6 MCV 96 MCH 33.5 H MCHC 35.0 RDW 13.8 Plt Count 132 L Seg Neutrophils % 68.9 Sodium 138.6 Potassium 4.3 Chloride 101 Carbon Dioxide 26 Anion Gap 12 BUN 19 Creatinine 0.93 Est GFR ( Amer) > 60 Glucose 139 H Calcium 9.8 Magnesium 1.5 L Total Bilirubin 1.2 AST 63 H Alkaline Phosphatase 70 Total Protein 7.8 Albumin 4.7 Triglycerides Cholesterol LDL Cholesterol Direct VLDL Cholesterol HDL Cholesterol TSH 1.07 Urine Color Urine Appearance Urine pH Ur Specific [place] Urine Protein Urine Glucose (UA) Urine Ketones Urine Blood Urine RBC (Auto) 11/18/19 11/18/19 11/18/19 10:58 10:58 14:58 WBC RBC Hgb Hct MCV MCH MCHC RDW Plt Count Seg Neutrophils % Sodium Potassium Chloride Carbon Dioxide Anion Gap BUN Creatinine Est GFR ( Amer) Glucose Calcium Magnesium Total Bilirubin AST Alkaline Phosphatase Total Protein Albumin Triglycerides 75 Cholesterol 157.37 LDL Cholesterol Direct 88 VLDL Cholesterol 15.0 HDL Cholesterol 60 TSH Cancelled Urine Color YELLOW Urine Appearance CLEAR Urine pH 5.0 Ur Specific [place] 1.018 Urine Protein NEGATIVE Urine Glucose (UA) NEGATIVE Urine Ketones TRACE H Urine Blood NEGATIVE Urine RBC (Auto) 0 11/18/19 18:31 WBC RBC Hgb Hct MCV MCH MCHC RDW Plt Count Seg Neutrophils % Sodium Potassium Chloride Carbon Dioxide Anion Gap BUN Creatinine Est GFR ( Amer) Glucose Calcium Magnesium 2.2 Total Bilirubin AST Alkaline Phosphatase Total Protein Albumin Triglycerides Cholesterol LDL Cholesterol Direct VLDL Cholesterol HDL Cholesterol TSH Urine Color Urine Appearance Urine pH Ur Specific [place] Urine Protein Urine Glucose (UA) Urine Ketones Urine Blood Urine RBC (Auto) 11/18/19 11/18/19 10:58 18:31 Troponin I 0.042 0.041 NT-Pro-B Natriuret Pep 2260 H Impressions: Chest X-Ray 11/18/19 11:09 IMPRESSION: NO ACUTE RADIOGRAPHIC FINDING IN THE CHEST. 11/18/19 10:58 11/18/19 10:58 MCV 96 fl (80-97) 11/18/19 10:58 MCH 33.5 pg (27.0-33.4) H 11/18/19 10:58 MCHC 35.0 g/dL (32.0-36.0) 11/18/19 10:58 RDW 13.8 % (11.5-14.0) 11/18/19 10:58 Seg Neutrophils % 68.9 % (42-78) 11/18/19 10:58 Chloride 101 mmol/L (98-107) 11/18/19 10:58 Carbon Dioxide 26 mmol/L (22-30) 11/18/19 10:58 Anion Gap 12 (5-19) 11/18/19 10:58 Est GFR ( Amer) > 60 (>60) 11/18/19 10:58 Glucose 139 mg/dL (75-110) H 11/18/19 10:58 Calcium 9.8 mg/dL (8.4-10.2) 11/18/19 10:58 Magnesium 2.2 mg/dL (1.6-2.3) 11/18/19 18:31 Total Bilirubin 1.2 mg/dL (0.2-1.3) 11/18/19 10:58 AST 63 U/L (17-59) H 11/18/19 10:58 Alkaline Phosphatase 70 U/L (38-126) 11/18/19 10:58 Total Protein 7.8 g/dL (6.3-8.2) 11/18/19 10:58 Albumin 4.7 g/dL (3.5-5.0) 11/18/19 10:58 Triglycerides 75 mg/dL (<150) 11/18/19 10:58 Cholesterol 157.37 mg/dL (0-200) 11/18/19 10:58 LDL Cholesterol Direct 88 mg/dL (<100) 11/18/19 10:58 VLDL Cholesterol 15.0 mg/dL (10-31) 11/18/19 10:58 HDL Cholesterol 60 mg/dL (>40) 11/18/19 10:58 TSH 1.07 uIU/mL (0.47-4.68) 11/18/19 10:58 TSH Cancelled 11/18/19 10:58 Urine Color YELLOW 11/18/19 14:58 Urine Appearance CLEAR 11/18/19 14:58 Urine pH 5.0 (5.0-9.0) 11/18/19 14:58 Ur Specific [place] 1.018 11/18/19 14:58 Urine Protein NEGATIVE mg/dL (NEGATIVE) 11/18/19 14:58 Urine Glucose (UA) NEGATIVE mg/dL (NEGATIVE) 11/18/19 14:58 Urine Ketones TRACE mg/dL (NEGATIVE) H 11/18/19 14:58 Urine Blood NEGATIVE (NEGATIVE) 11/18/19 14:58 Urine RBC (Auto) 0 /HPF 11/18/19 14:58 11/18/19 11/18/19 10:58 18:31 Troponin I 0.042 0.041 NT-Pro-B Natriuret Pep 2260 H Current Medication List Generic Name Dose Route Start Last Admin Trade Name Freq PRN Reason Stop Dose Admin Albuterol/Ipratropium 3 ml 11/18/19 20:00 11/19/19 01:56 Duoneb 3 Ml Ampul NEB 12/18/19 19:59 3 ml RTQ6 MCKENZIE Administration Aspirin 81 mg 11/18/19 16:45 11/18/19 17:20 Aspirin 81 Mg Chewable Tablet PO 12/18/19 16:44 81 mg DAILY MCKENZIE Administration Dextrose 12.5 gm 11/18/19 15:41 Dextrose Inj 50% Syringe (25 Gm/50 Ml) IV 12/18/19 15:40 PRN PRN FOR BG 50-69 IN ALERT PATIENT Protocol Dextrose 25 gm 11/18/19 15:41 Dextrose Inj 50% Syringe (25 Gm/50 Ml) IV 12/18/19 15:40 PRN PRN PER PROTOCOL Protocol Digoxin 0.25 mg 11/19/19 10:00 Lanoxin 0.25 Mg Tablet PO 12/19/19 09:59 DAILY MCKENZIE Enoxaparin Sodium 80 mg 11/18/19 17:00 11/19/19 05:00 Lovenox Inj 80 Mg/0.8 Ml Disp.Syrin SUBCUT 12/18/19 16:59 80 mg Q12A MCKENZIE Administration Famotidine 20 mg 11/18/19 22:00 11/18/19 21:53 Pepcid 20 Mg Tablet PO 12/18/19 21:59 20 mg Q12 MCKENZIE Administration Folic Acid 1 mg 11/18/19 16:45 11/18/19 17:20 Folvite 1 Mg Tablet PO 12/18/19 16:44 1 mg DAILY MCKENZIE Administration Glucagon 1 mg 11/18/19 15:41 Glucagen Inj 1 Mg Vial IM 12/18/19 15:40 PRN PRN Evaluate for BG < 70 Protocol Glucose 15 gm 11/18/19 15:41 Glutose 40% Gel 15 Gm Tube PO 12/18/19 15:40 PRN PRN FOR BG 50-69 IN ALERT PATIENT Protocol Glucose 30 gm 11/18/19 15:41 Glutose 40% Gel 15 Gm Tube PO 12/18/19 15:40 PRN PRN FOR BG < 50 IN ALERT PATIENT Protocol Hydralazine HCl 10 mg 11/18/19 15:36 Apresoline Inj/Pf 20 Mg/1 Ml Sdv IV 12/18/19 15:35 Q3HP PRN Give For Sbp > [150] Diltiazem HCl 125 mg in 125 mls @ 0 mls/hr 11/18/19 12:15 11/19/19 04:20 Cardizem Rtu Inj 125 Mg-D5w 125 Ml Premix IV 12/18/19 12:14 15 mls/hr CONTINUOUS PRN 15 mls/hr THIS MED IS NOT "PRN" Administration Protocol Titrate Sodium Chloride 1,000 mls @ 80 mls/hr 11/18/19 15:32 11/19/19 06:43 Nacl 0.9% 1000 Ml Iv Soln IV 12/18/19 15:31 80 mls/hr CONTINUOUS PRN Administration THIS MED IS NOT "PRN" Influenza Virus Vaccine Quadrival 0.5 ml 11/19/19 08:00 Flulaval Quad 2020- Vac 0.5 Ml Syr IM 11/19/19 08:01 .ONCE ONE Insulin Glargine 15 unit 11/18/19 22:00 11/18/19 21:53 Lantus Insulin 100 Unit/1 Ml 10 Ml SUBCUT 12/18/19 21:59 15 unit QHS MCKENZIE Administration Insulin Human Lispro 0 - 12 unit 11/18/19 16:00 11/18/19 21:52 Humalog Insulin 100 Unit/1 Ml 3 Ml Vial SUBCUT 12/18/19 15:59 4 unit ACHS MCKENZIE Administration Protocol Lorazepam 0.5 mg 11/18/19 15:36 Ativan Inj 2 Mg/1 Ml Vial IV 11/25/19 15:35 Q3HP PRN ANXIETY/AGITATION Metoprolol Succinate 25 mg 11/18/19 22:00 11/18/19 21:53 Toprol Xl 25 Mg Tab.Sr PO 12/18/19 21:59 25 mg Q12 MCKENZIE Administration Metoprolol Tartrate 2.5 mg 11/18/19 15:36 11/18/19 20:16 Lopressor Inj/Pf 5 Mg/5 Ml Sdv IV 12/18/19 15:35 2.5 mg Q6HP PRN Administration Give For Hr > [150] Multivitamins 1 tab 11/18/19 16:45 11/18/19 17:20 Tab-A-Hira (Multiple Vitamin) Tablet PO 12/18/19 16:44 1 tab DAILY MCKENZIE Administration Sodium Chloride 2.5 ml 11/18/19 22:00 11/19/19 05:03 Saline Flush 2.5 Ml Monoject Prefil Syrin IV 12/18/19 21:59 2.5 ml Q8 MCKENZIE Administration Thiamine HCl 100 mg 11/18/19 16:30 11/18/19 17:20 Thiamine 100 Mg Tablet PO 12/18/19 16:29 100 mg DAILY MCKENZIE Administration Discontinued Medications Generic Name Dose Route Start Last Admin Trade Name Freq PRN Reason Stop Dose Admin Adenosine Confirm 11/18/19 11:55 11/18/19 12:10 Adenocard Inj/Pf 6 Mg/2 Ml Sdv Administered 11/18/19 11:56 Not Given Dose 6 mg IV .STK-MED ONE Adenosine 6 mg 11/18/19 12:18 11/18/19 12:13 Adenocard Inj/Pf 6 Mg/2 Ml Sdv IV 11/18/19 12:19 6 mg NOW ONE Administration Adenosine 12 mg 11/18/19 12:18 11/18/19 12:14 Adenocard Inj/Pf 6 Mg/2 Ml Sdv IV 11/18/19 12:19 12 mg NOW ONE Administration Digoxin 0.25 mg 11/18/19 13:38 11/18/19 14:08 Lanoxin Inj 0.5 Mg/2 Ml Ampule IV 11/18/19 13:39 0.25 mg NOW ONE Administration Digoxin 0.25 mg 11/18/19 20:17 11/18/19 20:35 Lanoxin Inj 0.5 Mg/2 Ml Ampule IV 11/18/19 20:18 0.25 mg NOW ONE Administration Diltiazem HCl 20 mg 11/18/19 11:44 11/18/19 11:51 Cardizem Inj 25 Mg/5 Ml Vial IV 11/18/19 11:45 20 mg NOW ONE Administration Diltiazem HCl 20 mg 11/18/19 12:14 11/18/19 12:23 Cardizem Inj 25 Mg/5 Ml Vial IV 11/18/19 12:15 20 mg NOW ONE Administration Diltiazem HCl 15 mg 11/18/19 13:39 11/18/19 14:07 Cardizem Inj 25 Mg/5 Ml Vial IV 11/18/19 13:40 15 mg NOW ONE Administration Sodium Chloride 1,000 mls @ 0 mls/hr 11/18/19 12:19 11/18/19 13:27 Nacl 0.9% 1000 Ml Iv Soln IV 11/18/19 12:20 Infused BOLUS ONE Infusion Wide Open Magnesium Sulfate/Dextrose 1 gm in 100 mls @ 100 mls/hr 11/18/19 12:52 11/18/19 15:11 Magnesium Sulfate Rtu-D5w 1 Gm/100 Ml Premix IV 11/18/19 13:51 Infused NOW ONE Infusion Magnesium Sulfate/Dextrose 1 gm in 100 mls @ 100 mls/hr 11/18/19 16:30 11/18/19 17:51 Magnesium Sulfate Rtu-D5w 1 Gm/100 Ml Premix IV 11/18/19 17:29 Infused NOW ONE Infusion Insulin Glargine Confirm 11/18/19 21:51 11/18/19 22:00 Lantus (Pyxis) Insulin 100 Unit/1 Ml 10 Ml Administered 11/18/19 21:52 Not Given Dose 1 unit SUBCUT .STK-MED ONE Metoprolol Tartrate 15 mg 11/18/19 11:07 11/18/19 11:21 Lopressor Inj/Pf 5 Mg/5 Ml Sdv IV 11/18/19 11:08 15 mg NOW ONE Administration Assessment & Plan - Diagnosis (1) Atrial flutter Is this a current diagnosis for this admission?: Yes Plan: The patient is currently in atrial flutter/atrial fibrillation with an improved ventricular response although continues to be at maximum doses of diltiazem drip. He is currently anticoagulated with Lovenox and underwent a flutter/atrial fibrillation ablation at [facility] in 2013. Of note he had an acute but asymptomatic episode of RVR after receiving a breathing treatment this morning. Of note, he is mildly thrombocytopenic for unclear reasons to me with a chads 2 vascular score of 2, I still believe he should be anticoagulated with Eliquis or Xarelto with close attention to his platelet count. Recommendations: -Wean off diltiazem drip. -Discontinue Lovenox. -Discontinue breathing treatments. -Discontinue Toprol. -Discontinue digoxin. -Start metoprolol tartrate 25 mg p.o. every 6 hours as tolerated by blood pressure and heart rate. -Start NOAC of your choice with close attention to his platelet count. Of note, Eliquis, Xarelto and Pradaxa all had been associated with rare cases of thrombocytopenia therefore close attention to his CBC and platelet count is paramount. -Echocardiogram. -Continue telemetry. (2) Aortic stenosis Is this a current diagnosis for this admission?: Yes Plan: Status post AVR on 01/18/13 with a 25 mm Harper tissue valve. No concerning symptoms and well seated valve with normal gradient on echocardiogram in June 2018. Recommendations: -Continue to follow-up clinically. (3) Ascending aortic aneurysm Is this a current diagnosis for this admission?: Yes Plan: His echocardiogram in December 2018 demonstrated stable aneurysms with the aortic root measuring 4.0 cm and the proximal ascending aorta also measuring 4.0 cm. Recommendations: -Repeat echocardiogram today to assess growth rate. -Further recommendations pending results of echocardiogram. (4) Elevated troponin Is this a current diagnosis for this admission?: Yes Plan: His troponin is indeterminate range at 0.041. It has not been trended yet. Recommendations: -Echocardiogram today. -Trend troponins. -We will continue to follow with you.
--- NOTE | 2019-11-19 14:31 | PDOC PROGRESS REPORT ---
Subjective Progress Note for:: 11/19/19 Subjective:: LISA POWERS is a 69 year old male past medical history of atrial fibrillation status post ablation a year ago at [facility], history of bicuspid aortic valve status post aortic valve replacement x1 year, history of aortic aneurysm, diabetes, EtOH abuse, who was sent to ED by his PCP after being found having an abnormal heart rate. Patient is stating that occasionally he feels lightheaded otherwise denies any palpitation, chest pain, syncope, presyncope, nausea, vomiting, headache, focal neurological symptoms, diarrhea, constipation. In ED he was noted to be in supraventricular tachycardia, was given adenosine and was noted to have underlying A. fib RVR, was given multiple doses of digoxin which controlled his rate and was started on Cardizem drip, h ospitalist consulted for admission. His adhesion tester Dr. Guadalupe was also consulted who has agreed to see him. 11/19/2019. No acute events overnight. Patient this morning went back into A. fib RVR likely due to breathing treatment, stating that he did not feel any palpitations or chest pain, did not feel anxious, patient is currently receiving no apparent distress, anxious to go home, denies any fever, chills, nausea, vomiting, diarrhea, constipation or any urinary symptoms. Cardiology consulted. Reason For Visit: AFIB RVR Physical Exam Vital Signs: Temp Pulse Resp BP Pulse Ox 98.1 F 79 16 112/61 97 11/19/19 08:49 11/19/19 14:00 11/19/19 07:53 11/19/19 14:00 11/19/19 08:12 Intake & Output 11/18/19 11/19/19 11/20/19 06:59 06:59 06:59 Intake Total 2967 135 Output Total 900 Balance 2067 135 Weight 81.4 kg General appearance: PRESENT: no acute distress, well-developed, well-nourished Head exam: PRESENT: atraumatic, normocephalic Neck exam: ABSENT: carotid bruit, JVD, lymphadenopathy, thyromegaly Respiratory exam: PRESENT: clear to auscultation evan. ABSENT: rales, rhonchi, wheezes Cardiovascular exam: PRESENT: irregular rhythm, tachycardia. ABSENT: diastolic murmur, rubs, systolic murmur GI/Abdominal exam: PRESENT: normal bowel sounds, soft. ABSENT: distended, guarding, mass, organolmegaly, rebound, tenderness Neurological exam: PRESENT: alert, awake, oriented to person, oriented to place, oriented to time, oriented to situation, CN II-XII grossly intact. ABSENT: motor sensory deficit Results Laboratory Results: 11/19/19 08:00 11/19/19 08:00 11/18/19 11/18/19 11/18/19 10:58 10:58 14:58 WBC RBC Hgb Hct MCV MCH MCHC RDW Plt Count Seg Neutrophils % Sodium Potassium Chloride Carbon Dioxide Anion Gap BUN Creatinine Est GFR ( Amer) Glucose Calcium Magnesium Total Bilirubin AST Alkaline Phosphatase Total Protein Albumin Triglycerides 75 Cholesterol 157.37 LDL Cholesterol Direct 88 VLDL Cholesterol 15.0 HDL Cholesterol 60 TSH Cancelled Urine Color YELLOW Urine Appearance CLEAR Urine pH 5.0 Ur Specific [place] 1.018 Urine Protein NEGATIVE Urine Glucose (UA) NEGATIVE Urine Ketones TRACE H Urine Blood NEGATIVE Urine Nitrite Ur Leukocyte Esterase Urine RBC (Auto) 0 11/18/19 11/19/19 11/19/19 18:31 06:32 08:00 WBC RBC Hgb Hct MCV MCH MCHC RDW Plt Count Seg Neutrophils % Sodium 138.4 Potassium 4.1 Chloride 107 Carbon Dioxide 21 L Anion Gap 10 BUN 13 Creatinine 0.77 Est GFR ( Amer) > 60 Glucose 106 Calcium 8.9 Magnesium 2.2 1.6 Total Bilirubin 1.0 AST 47 Alkaline Phosphatase 57 Total Protein 6.4 Albumin 3.8 Triglycerides Cholesterol LDL Cholesterol Direct VLDL Cholesterol HDL Cholesterol TSH Urine Color YELLOW Urine Appearance CLEAR Urine pH 5.0 Ur Specific [place] 1.010 Urine Protein NEGATIVE Urine Glucose (UA) NEGATIVE Urine Ketones TRACE H Urine Blood LARGE H Urine Nitrite NEGATIVE Ur Leukocyte Esterase NEGATIVE Urine RBC (Auto) 86 11/19/19 08:00 WBC 4.5 RBC 3.85 L Hgb 12.8 L Hct 36.7 L MCV 96 MCH 33.3 MCHC 34.9 RDW 14.1 H Plt Count 108 L Seg Neutrophils % 68.5 Sodium Potassium Chloride Carbon Dioxide Anion Gap BUN Creatinine Est GFR ( Amer) Glucose Calcium Magnesium Total Bilirubin AST Alkaline Phosphatase Total Protein Albumin Triglycerides Cholesterol LDL Cholesterol Direct VLDL Cholesterol HDL Cholesterol TSH Urine Color Urine Appearance Urine pH Ur Specific [place] Urine Protein Urine Glucose (UA) Urine Ketones Urine Blood Urine Nitrite Ur Leukocyte Esterase Urine RBC (Auto) 11/18/19 11/18/19 10:58 18:31 Troponin I 0.042 0.041 NT-Pro-B Natriuret Pep 2260 H Impressions: Chest X-Ray 11/18/19 11:09 IMPRESSION: NO ACUTE RADIOGRAPHIC FINDING IN THE CHEST. Assessment and Plan - Diagnosis (1) Atrial fibrillation Qualifiers: Atrial fibrillation type: paroxysmal Qualified Code(s): I48.0 - Paroxysmal atrial fibrillation Is this a current diagnosis for this admission?: Yes Plan: History of atrial fibrillation status post ablation. Currently on beta-blockers, not anticoagulated. Continue telemetry ,Cardizem drip, PRN metoprolol, weight dosed Lovenox, 2D echo, cardiology consult. (2) Elevated troponin Is this a current diagnosis for this admission?: Yes Plan: Denies any history of CAD. Denies any chest pain palpitation or lightheadedness. Likely due to demand mismatch. Antiplatelets, beta-blockers, MOUNA, statins, trend troponins. (3) Aortic valve replaced Is this a current diagnosis for this admission?: Yes Plan: History of bicuspid aortic valve, status post aortic bioprosthetic valve replacement. Denies any chest or palpitation, denies any syncope or presyncope. Outpatient PCP and cardiology follow-up. (4) ETOH abuse Is this a current diagnosis for this admission?: Yes Plan: Denies any history of alcohol intoxication or hospitalization for EtOH abuse. Thiamine, folic acid, multivitamin, benzodiazepines, DT precautions. (5) Diabetes Qualifiers: Diabetes mellitus type: type 2 Is this a current diagnosis for this admission?: Yes Plan: Diabetic diet, sliding scale insulin, basal and prandial insulin. Accu-Chek. Hypoglycemia protocol. Outpatient PCP and cardio follow-up. - Time Time Spent with patient: 35 or more minutes Medications reviewed and adjusted accordingly: Yes Anticipated Discharge Disposition: Home, Self Care Anticipated Discharge Timeframe: within 48 hours
--- NOTE | 2019-11-19 17:32 | XCELERA REPORT ---
[address] [address] Transthoracic Echocardiogram Report Name: LISA POWERS Age: 69 yrs Gender: Male : 1950 Patient Status: Inpatient Patient Location: [address] [place] [address] Study Date: 11/19/2019 02:28 PM Height: 69 in Weight: 179 lb BSA: 2.0 m2 Procedure: A complete two-dimensional transthoracic echocardiogram was performed (2D, M-mode, spectral and color flow Doppler). The study was technically difficult with many images being suboptimal in quality. Reason For Study: afib RVR Ordering Physician: ALEXANDER GARZA Performed By: Janet Way Interpretation Summary The left ventricle is grossly normal size. The left ventricular ejection fraction is normal. The Ejection Fraction estimate is 60-65%. LV diastolic function could not be adequately assessed. Regional wall motion abnormalities cannot be excluded due to limited visualization. Mild to moderate ALESSANDRA. Trace to mild MR, mild TR. Prosthetic tissue valve in the aortic position with normal gradient and no perivalvular leak. MMode/2D Measurements & Calculations RVDd: 3.1 cm LVIDd: 4.0 cm FS: 38.2 % Ao root diam: 3.5 cm IVSd: 1.2 cm LVIDs: 2.5 cm EDV(Teich): 69.6 ml Ao root area: 9.5 cm2 LVPWd: 0.99 cm ESV(Teich): 21.6 ml LA dimension: 3.7 cm EF(Teich): 69.0 % Doppler Measurements & Calculations MV E max corrie: MV P1/2t max corrie: Ao V2 max: LV V1 max P.9 cm/sec 122.9 cm/sec 225.9 cm/sec 4.3 mmHg MV A max corrie: MV P1/2t: 38.5 msec Ao max PG: LV V1 max: 31.6 cm/sec MVA(P1/2t): 5.7 cm2 20.4 mmHg 103.7 cm/sec MV E/A: 3.9 MV dec slope: 935.8 cm/sec2 MV dec time: 0.13 sec PA V2 max: TR max corrie: MV P1/2t-pr_phl: 57.3 cm/sec 214.8 cm/sec 38.5 msec PA max P.3 mmHgTR max P.4 mmHg Left Ventricle The left ventricle is grossly normal size. The left ventricular ejection fraction is normal. The Ejection Fraction estimate is 60-65%. LV diastolic function could not be adequately assessed. Regional wall motion abnormalities cannot be excluded due to limited visualization. Right Ventricle The right ventricle is grossly normal size. There is normal right ventricular wall thickness. The right ventricular systolic function is normal. Atria The right atrium is mild to moderately dilated. The left atrial size is normal. There is no Doppler evidence for an interatrial shunt. Mitral Valve The mitral valve leaflets are sclerotic, but show no functional abnormalities. There is no mitral valve stenosis. There is a trace to mild amount of mitral regurgitation. Aortic Valve The aortic valve is not well visualized secondary to technical limitations. Prosthetic tissue valve in the aortic position with normal gradient and no perivalvular leak. Tricuspid Valve The tricuspid valve is not well visualized, but is grossly normal. There is a mild amount of tricuspid regurgitation. Pulmonic Valve The pulmonic valve is not well visualized. Great Vessels The inferior vena cava appeared normal and decreased < 50% with respiration (RAP 10-15 mmHg). Effusions There is no pericardial effusion. : ALEXANDER GARZA Antonio
[2019-11-19] MEDS ORDERED: RIVAROXABAN 10 MG TABLET PO SCH (18:00)
[2019-11-19] MEDS: METOPROLOL TARTRATE 25 MG TABLET PO SCH ×2 (18:01→23:11)
[2019-11-19] MEDS: INSULIN GLARGINE,HUM.REC.ANLOG 1,000 UNIT/10 ML VIAL SUBCUT SCH (21:53)
[2019-11-20] MEDS: METOPROLOL TARTRATE 25 MG TABLET PO SCH (05:42)
--- NOTE | 2019-11-20 08:26 | PDOC PROGRESS REPORT ---
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 He had been in his usual state of health until yesterday when, during a routine vi sit to his primary care provider, he was found to be in rapid atrial fibrillation however he was completely asymptomatic. In our emergency room ED he was noted to be in a narrow complex tachycardia suspected to be SVT therefore he was given adenosine and was noted to have underlying A. fib RVR, was given multiple doses of digoxin which controlled his rate and was started on Cardizem drip. He had been doing well since admission and his heart rate had been very well controlled on maximum doses of diltiazem drip but unfortunately he received a breathing treatment at which point his heart rate became uncontrolled. After several hours his heart rate has decreased and is much better controlled now. 11/20/2019: The patient had an uneventful night and is feeling better. His telemetry shows atrial fibrillation/flutter with a controlled ventricular rate. His EKG this morning demonstrates atrial fibrillation with a very well controlled heart rate. His blood pressure continues at goal and he has no new complaints this morning. He is now anticoagulated with Xarelto 20 mg daily. Physical exam on 11/20/2019: GENERAL: Pleasant and conversational. Oriented x3 with normal mood. Not in ac ruperto distress. Well groomed and well developed. HEENT: Normocephalic, atraumatic. Pupils equal. Sclerae anicteric. Oropharynx moist. NECK: No JVD. No carotid bruits. LUNGS: Clear to auscultation bilaterally. Normal respiratory effort without the use of accessory muscles or intercostal retractions. CARDIOVASCULAR: Irregularly irregular rate and rhythm without murmurs, rubs, or gallops. PMI not displaced. ABDOMEN: No masses or tenderness to palpation. No bruit. No splenomegaly or h epatomegaly. No abdominal aorta bruit noted. EXTREMITIES: No edema, no cyanosis, no clubbing. +2 pulses femoral and pedal pulses bilaterally. SKIN: No lesions or rashes. MUSCULOSKELETAL: No chest tenderness to palpation. NEUROLOGIC: Nonfocal. No gross sensory or motor deficits bilateral upper or lower extremities. Cardiac studies: Echocardiogram on 12/24/18: -LV is normal in size. -Mild concentric LVH. -EF 60-65%. -Grade 3 diastolic dysfunction. -Septal motion consistent with postop state. -Mild LAE. -Mild to moderate ALESSANDRA. -Mild MR, mild TR. -Mildly dilated aortic root at 4.0 cm. -Mildly dilated proximal ascending aorta at 4.0 cm. Echocardiogram on 06/17/18: -Difficult study for interpretation. -Concentric remodeling. -EF 60-65%. -Grade 3 diastolic dysfunction. -Normal wall motion abnormalities. -Moderate TR. -Prosthetic tissue valve in the aortic position with normal gradient and no perivalvular leak. -Mildly dilated ascending aorta at 4.0 cm. -Mildly dilated aortic root at 4.0 cm. Reason For Visit: AFIB RVR Physical Exam Vital Signs: Temp Pulse Resp BP Pulse Ox 98.1 F 81 20 131/83 H 98 11/20/19 03:38 11/20/19 03:38 11/20/19 03:38 11/20/19 03:38 11/20/19 03:38 Intake & Output 11/19/19 11/20/19 11/21/19 06:59 06:59 06:59 Intake Total 2967 877 Output Total 900 1250 Balance 2067 -373 Weight 81.4 kg 82.6 kg Results Laboratory Results: 11/19/19 08:00 11/19/19 08:00 11/19/19 11/19/19 08:00 08:00 WBC 4.5 RBC 3.85 L Hgb 12.8 L Hct 36.7 L MCV 96 MCH 33.3 MCHC 34.9 RDW 14.1 H Plt Count 108 L Seg Neutrophils % 68.5 Sodium 138.4 Potassium 4.1 Chloride 107 Carbon Dioxide 21 L Anion Gap 10 BUN 13 Creatinine 0.77 Est GFR ( Amer) > 60 Glucose 106 Calcium 8.9 Magnesium 1.6 Total Bilirubin 1.0 AST 47 Alkaline Phosphatase 57 Total Protein 6.4 Albumin 3.8 11/18/19 11/18/19 11/19/19 10:58 18:31 18:39 Troponin I 0.042 0.041 0.028 NT-Pro-B Natriuret Pep 2260 H Impressions: Chest X-Ray 11/18/19 11:09 IMPRESSION: NO ACUTE RADIOGRAPHIC FINDING IN THE CHEST. 11/19/19 08:00 11/19/19 08:00 MCV 96 fl (80-97) 11/19/19 08:00 MCH 33.3 pg (27.0-33.4) 11/19/19 08:00 MCHC 34.9 g/dL (32.0-36.0) 11/19/19 08:00 RDW 14.1 % (11.5-14.0) H 11/19/19 08:00 Seg Neutrophils % 68.5 % (42-78) 11/19/19 08:00 Chloride 107 mmol/L (98-107) 11/19/19 08:00 Carbon Dioxide 21 mmol/L (22-30) L 11/19/19 08:00 Anion Gap 10 (5-19) 11/19/19 08:00 Est GFR ( Amer) > 60 (>60) 11/19/19 08:00 Glucose 106 mg/dL (75-110) 11/19/19 08:00 Calcium 8.9 mg/dL (8.4-10.2) 11/19/19 08:00 Magnesium 1.6 mg/dL (1.6-2.3) 11/19/19 08:00 Total Bilirubin 1.0 mg/dL (0.2-1.3) 11/19/19 08:00 AST 47 U/L (17-59) 11/19/19 08:00 Alkaline Phosphatase 57 U/L (38-126) 11/19/19 08:00 Total Protein 6.4 g/dL (6.3-8.2) 11/19/19 08:00 Albumin 3.8 g/dL (3.5-5.0) 11/19/19 08:00 Triglycerides 75 mg/dL (<150) 11/18/19 10:58 Cholesterol 157.37 mg/dL (0-200) 11/18/19 10:58 LDL Cholesterol Direct 88 mg/dL (<100) 11/18/19 10:58 VLDL Cholesterol 15.0 mg/dL (10-31) 11/18/19 10:58 HDL Cholesterol 60 mg/dL (>40) 11/18/19 10:58 TSH 1.07 uIU/mL (0.47-4.68) 11/18/19 10:58 TSH Cancelled 11/18/19 10:58 Urine Color YELLOW 11/19/19 06:32 Urine Appearance CLEAR 11/19/19 06:32 Urine pH 5.0 (5.0-9.0) 11/19/19 06:32 Ur Specific [place] 1.010 11/19/19 06:32 Urine Protein NEGATIVE mg/dL (NEGATIVE) 11/19/19 06:32 Urine Glucose (UA) NEGATIVE mg/dL (NEGATIVE) 11/19/19 06:32 Urine Ketones TRACE mg/dL (NEGATIVE) H 11/19/19 06:32 Urine Blood LARGE (NEGATIVE) H 11/19/19 06:32 Urine Nitrite NEGATIVE (NEGATIVE) 11/19/19 06:32 Ur Leukocyte Esterase NEGATIVE (NEGATIVE) 11/19/19 06:32 Urine RBC (Auto) 86 /HPF 11/19/19 06:32 11/18/19 11/18/19 11/19/19 10:58 18:31 18:39 Troponin I 0.042 0.041 0.028 NT-Pro-B Natriuret Pep 2260 H Current Medication List Generic Name Dose Route Start Last Admin Trade Name Freq PRN Reason Stop Dose Admin Aspirin 81 mg 11/18/19 16:45 11/19/19 10:53 Aspirin 81 Mg Chewable Tablet PO 12/18/19 16:44 81 mg DAILY MCKENZIE Administration Dextrose 12.5 gm 11/18/19 15:41 Dextrose Inj 50% Syringe (25 Gm/50 Ml) IV 12/18/19 15:40 PRN PRN FOR BG 50-69 IN ALERT PATIENT Protocol Dextrose 25 gm 11/18/19 15:41 Dextrose Inj 50% Syringe (25 Gm/50 Ml) IV 12/18/19 15:40 PRN PRN PER PROTOCOL Protocol Famotidine 20 mg 11/18/19 22:00 11/19/19 21:53 Pepcid 20 Mg Tablet PO 12/18/19 21:59 20 mg Q12 MCKENZIE Administration Folic Acid 1 mg 11/18/19 16:45 11/19/19 10:52 Folvite 1 Mg Tablet PO 12/18/19 16:44 1 mg DAILY MCKENZIE Administration Glucagon 1 mg 11/18/19 15:41 Glucagen Inj 1 Mg Vial IM 12/18/19 15:40 PRN PRN Evaluate for BG < 70 Protocol Glucose 15 gm 11/18/19 15:41 Glutose 40% Gel 15 Gm Tube PO 12/18/19 15:40 PRN PRN FOR BG 50-69 IN ALERT PATIENT Protocol Glucose 30 gm 11/18/19 15:41 Glutose 40% Gel 15 Gm Tube PO 12/18/19 15:40 PRN PRN FOR BG < 50 IN ALERT PATIENT Protocol Hydralazine HCl 10 mg 11/18/19 15:36 Apresoline Inj/Pf 20 Mg/1 Ml Sdv IV 12/18/19 15:35 Q3HP PRN Give For Sbp > [150] Insulin Glargine 15 unit 11/18/19 22:00 11/19/19 21:53 Lantus Insulin 100 Unit/1 Ml 10 Ml SUBCUT 12/18/19 21:59 15 unit QHS MCKENZIE Administration Insulin Human Lispro 0 - 12 unit 11/18/19 16:00 11/19/19 21:49 Humalog Insulin 100 Unit/1 Ml 3 Ml Vial SUBCUT 12/18/19 15:59 Not Given ACHS [facility] Protocol Lorazepam 0.5 mg 11/18/19 15:36 Ativan Inj 2 Mg/1 Ml Vial IV 11/25/19 15:35 Q3HP PRN ANXIETY/AGITATION Metoprolol Tartrate 2.5 mg 11/18/19 15:36 11/18/19 20:16 Lopressor Inj/Pf 5 Mg/5 Ml Sdv IV 12/18/19 15:35 2.5 mg Q6HP PRN Administration Give For Hr > [150] Metoprolol Tartrate 50 mg 11/20/19 10:00 Lopressor 50 Mg Tablet PO 12/20/19 09:59 Q12 MCKENZIE Multivitamins 1 tab 11/18/19 16:45 11/19/19 10:53 Tab-A-Hira (Multiple Vitamin) Tablet PO 12/18/19 16:44 1 tab DAILY MCKENZIE Administration Rivaroxaban 20 mg 11/19/19 18:00 11/19/19 18:02 Xarelto 10 Mg Tablet PO 12/19/19 17:59 20 mg WSUPPER MCKENZIE Administration Sodium Chloride 2.5 ml 11/18/19 22:00 11/20/19 05:42 Saline Flush 2.5 Ml Monoject Prefil Syrin IV 12/18/19 21:59 2.5 ml Q8 MCKENZIE Administration Thiamine HCl 100 mg 11/18/19 16:30 11/19/19 10:53 Thiamine 100 Mg Tablet PO 12/18/19 16:29 100 mg DAILY MCKENZIE Administration Discontinued Medications Generic Name Dose Route Start Last Admin Trade Name Elisa CANTUN Reason Stop Dose Admin Adenosine Confirm 11/18/19 11:55 11/18/19 12:10 Adenocard Inj/Pf 6 Mg/2 Ml Sdv Administered 11/18/19 11:56 Not Given Dose 6 mg IV .STK-MED ONE Adenosine 6 mg 11/18/19 12:18 11/18/19 12:13 Adenocard Inj/Pf 6 Mg/2 Ml Sdv IV 11/18/19 12:19 6 mg NOW ONE Administration Adenosine 12 mg 11/18/19 12:18 11/18/19 12:14 Adenocard Inj/Pf 6 Mg/2 Ml Sdv IV 11/18/19 12:19 12 mg NOW ONE Administration Albuterol/Ipratropium 3 ml 11/18/19 20:00 11/19/19 07:53 Duoneb 3 Ml Ampul NEB 12/18/19 19:59 3 ml RTQ6 MCKENZIE Administration Digoxin 0.25 mg 11/18/19 13:38 11/18/19 14:08 Lanoxin Inj 0.5 Mg/2 Ml Ampule IV 11/18/19 13:39 0.25 mg NOW ONE Administration Digoxin 0.25 mg 11/18/19 20:17 11/18/19 20:35 Lanoxin Inj 0.5 Mg/2 Ml Ampule IV 11/18/19 20:18 0.25 mg NOW ONE Administration Digoxin 0.25 mg 11/19/19 10:00 11/19/19 12:56 Lanoxin 0.25 Mg Tablet PO 12/19/19 09:59 Not Given DAILY MCKENZIE Diltiazem HCl 20 mg 11/18/19 11:44 11/18/19 11:51 Cardizem Inj 25 Mg/5 Ml Vial IV 11/18/19 11:45 20 mg NOW ONE Administration Diltiazem HCl 20 mg 11/18/19 12:14 11/18/19 12:23 Cardizem Inj 25 Mg/5 Ml Vial IV 11/18/19 12:15 20 mg NOW ONE Administration Diltiazem HCl 15 mg 11/18/19 13:39 11/18/19 14:07 Cardizem Inj 25 Mg/5 Ml Vial IV 11/18/19 13:40 15 mg NOW ONE Administration Enoxaparin Sodium 80 mg 11/18/19 17:00 11/19/19 05:00 Lovenox Inj 80 Mg/0.8 Ml Disp.Syrin SUBCUT 12/18/19 16:59 80 mg Q12A MCKENZIE Administration Diltiazem HCl 125 mg in 125 mls @ 0 mls/hr 11/18/19 12:15 11/19/19 13:46 Cardizem Rtu Inj 125 Mg-D5w 125 Ml Premix IV 12/18/19 12:14 0 mls/hr CONTINUOUS PRN 0 mls/hr THIS MED IS NOT "PRN" Titration Protocol Titrate Sodium Chloride 1,000 mls @ 0 mls/hr 11/18/19 12:19 11/18/19 13:27 Nacl 0.9% 1000 Ml Iv Soln IV 11/18/19 12:20 Infused BOLUS ONE Infusion Wide Open Magnesium Sulfate/Dextrose 1 gm in 100 mls @ 100 mls/hr 11/18/19 12:52 11/18/19 15:11 Magnesium Sulfate Rtu-D5w 1 Gm/100 Ml Premix IV 11/18/19 13:51 Infused NOW ONE Infusion Sodium Chloride 1,000 mls @ 80 mls/hr 11/18/19 15:32 11/19/19 06:43 Nacl 0.9% 1000 Ml Iv Soln IV 12/18/19 15:31 80 mls/hr CONTINUOUS PRN Administration THIS MED IS NOT "PRN" Magnesium Sulfate/Dextrose 1 gm in 100 mls @ 100 mls/hr 11/18/19 16:30 11/18/19 17:51 Magnesium Sulfate Rtu-D5w 1 Gm/100 Ml Premix IV 11/18/19 17:29 Infused NOW ONE Infusion Influenza Virus Vaccine Quadrival 0.5 ml 11/19/19 08:00 Flulaval Quad 2020-21 Vac 0.5 Ml Syr IM 11/19/19 08:01 .ONCE ONE Insulin Glargine Confirm 11/18/19 21:51 11/18/19 22:00 Lantus (Pyxis) Insulin 100 Unit/1 Ml 10 Ml Administered 11/18/19 21:52 Not Given Dose 1 unit SUBCUT .STK-MED ONE Metoprolol Succinate 25 mg 11/18/19 22:00 11/19/19 10:53 Toprol Xl 25 Mg Tab.Sr PO 12/18/19 21:59 25 mg Q12 MCKENZIE Administration Metoprolol Tartrate 15 mg 11/18/19 11:07 11/18/19 11:21 Lopressor Inj/Pf 5 Mg/5 Ml Sdv IV 11/18/19 11:08 15 mg NOW ONE Administration Metoprolol Tartrate 25 mg 11/19/19 18:00 11/20/19 05:42 Lopressor 25 Mg Tablet PO 12/19/19 17:59 25 mg Q6 MCKENZIE Administration Assessment & Plan - Diagnosis (1) Atrial flutter Is this a current diagnosis for this admission?: Yes Plan: The patient continues to be hemodynamically stable and with a controlled heart rate on the current regimen. He is now anticoagulated with Xarelto 20 mg daily however his platelets were low on CBC yesterday. Unfortunately his CBC has not been checked yet today however he denies any bleeding. He is ready to be discharged from the cardiovascular standpoint and wants to follow-up with [facility] at some point. In the meantime I will set him up with a 1 week follow-up with Dr. Meade in our office in [place] while he is reevaluated at [facility]. Recommendations: -Discontinue metoprolol every 6 hours. -Start metoprolol tartrate 50 mg twice daily. -CBC to recheck on his platelet count prior to discharge, if platelets are lower than yesterday we will need to stop his Xarelto. -Follow-up with Dr. Meade in our [place] office in 1 week. -Follow-up with [facility] for further treatment. -Please call me directly at [phone] with questions. (2) Aortic stenosis Is this a current diagnosis for this admission?: Yes Plan: Status post AVR on 01/18/13 with a 25 mm Harper tissue valve. No concerning symptoms and well seated valve and without any significant abnormalities on echocardiogram during this hospitalization. With normal gradient on echocardiogram in June 2018. Recommendations: -Continue to follow-up clinically. (3) Ascending aortic aneurysm Is this a current diagnosis for this admission?: Yes Plan: His echocardiogram in December 2018 demonstrated stable aneurysms with the aortic root measuring 4.0 cm and the proximal ascending aorta also measuring 4.0 cm. Recommendations: -Follow-up with [facility]. (4) Elevated troponin Is this a current diagnosis for this admission?: Yes Plan: His troponin remained in the indeterminate range and is now 0.028. This is likely secondary to his tachycardia as he has remained free of ischemic symptoms. His echocardiogram demonstrated a normal ejection fraction without gross regional wall motion abnormalities. Recommendations: -No further cardiac work-up indicated at this point.
[2019-11-20 09:28] LABS: HEMOGLOBIN 12.5 g/dL (13.5-17.0); MEAN CORPUSCULAR HEMOGLOBIN 33.3 pg (27.0-33.4); MEAN CORPUSCULAR HGB CONC 34.7 g/dL (32.0-36.0); MEAN CORPUSCULAR VOLUME 96 fl (80-97); PLATELET COUNT 108 10^3/uL (150-450); RED BLOOD COUNT 3.75 10^6/uL (4.35-5.55); RED CELL DISTRIBUTION WIDTH 13.9 % (11.5-14.0); WHITE BLOOD COUNT 3.9 10^3/uL (4.0-10.5)
[2019-11-20] MEDS: INSULIN LISPRO 100 UNIT/ML 3 ML VIAL SUBCUT SCH ×2 (09:45→12:36)
[2019-11-20] MEDS: MULTIVITAMIN TABLET PO SCH (09:50)
[2019-11-20] MEDS: FAMOTIDINE 20 MG TABLET PO SCH (09:50)
[2019-11-20] MEDS: ASPIRIN 81 MG TABLET, CHEWABLE PO SCH (09:50)
[2019-11-20] MEDS: THIAMINE HCL 100 MG TABLET PO SCH (09:51)
[2019-11-20] MEDS: FOLIC ACID 1 MG TABLET PO SCH (09:52)
[2019-11-20] MEDS ORDERED: METOPROLOL TARTRATE 50 MG TABLET PO SCH (10:00)
--- NOTE | 2019-11-20 10:06 | EKG REPORT ---
SEVERITY:- ABNORMAL ECG - SINUS OR ECTOPIC ATRIAL RHYTHM FIRST DEGREE AV BLOCK BORDERLINE T ABNORMALITIES, INFERIOR LEADS : Confirmed by: Ami Matt MD 20-Nov-2019 10:05:52
[2019-11-20 13:39] VITALS: BP 127/76
--- NOTE | 2019-11-20 17:04 | PDOC DISCHARGE SUMMARY ---
Impression - Admit/DC Date/PCP Admission Date/Primary Care Provider: 11/18/19 15:53 Discharge Date: 11/20/19 - Discharge Diagnosis (1) Atrial fibrillation Is this a current diagnosis for this admission?: Yes (2) Elevated troponin Is this a current diagnosis for this admission?: Yes (3) Aortic valve replaced Is this a current diagnosis for this admission?: Yes (4) ETOH abuse Is this a current diagnosis for this admission?: Yes (5) Diabetes Is this a current diagnosis for this admission?: Yes - Additional Information Discharge Diet: As Tolerated, Cardiac, Diabetic Discharge Activity: Activity As Tolerated Referrals: CHIQUIS FIERRO MD [ACTIVE STAFF] - Follow up as needed (PLEASE MAKE APPT FOR PT AFTER 1000) RAYRAY GUADALUPE MD [ACTIVE PROVISIONAL STAFF] - (PLEASE MAKE APPT FOR PT AFTER 1000) Prescriptions: Metoprolol Tartrate [Lopressor 50 mg Tablet] 50 mg PO Q12 30 Days #60 tablet Home Medications: Acetaminophen [Tylenol 325 mg Tablet] 650 mg PO Q6HP PRN 08/03/18 Aspirin [Ecotrin] 81 mg PO DAILY 08/03/18 Cholecalciferol (Vitamin D3) [Vitamin D3 2000 unit Tablet] 2,000 unit PO DAILY 08/03/18 Dulaglutide [Trulicity] 1.5 mg SQ Q7D 08/03/18 Pioglitazone HCl 45 mg PO QAM 08/03/18 Tizanidine HCl [Zanaflex] 4 mg PO Q8HP PRN 08/03/18 Metoprolol Tartrate [Lopressor 50 mg Tablet] 50 mg PO Q12 30 Days #60 tablet 11/20/19 History of Present Illiness History of Present Illness: LISA POWERS is a 69 year old male past medical history of atrial fibrillation status post ablation a year ago at [facility], history of bicuspid aortic valve status post aortic valve replacement x1 year, history of aortic aneurysm, diabetes, EtOH abuse, who was sent to ED by his PCP after being found having an abnormal heart rate. Patient is stating that occasionally he feels lightheaded otherwise denies any palpitation, chest pain, syncope, presync ope, nausea, vomiting, headache, focal neurological symptoms, diarrhea, constipation. In ED he was noted to be in supraventricular tachycardia, was given adenosine and was noted to have underlying A. fib RVR, was given multiple doses of digoxin which controlled his rate and was started on Cardizem drip, hospitalist consulted for admission. His beef cattle farm manager Dr. Guadalupe was also consulted who has agreed to see him. Hospital Course Hospital Course: (1) Atrial fibrillation History of atrial fibrillation status post ablation. Was a started on Cardizem drip and transition to p.o. metoprolol. Rate controlled. Patient was started on Xarelto however noted to be thrombocytopenic which was chronic however after starting Xarelto platelets dropped further. Repeat platelet the following day still was unchanged from previously. As per Dr. Guadalupe his Xarelto was DC'd and patient was advised to follow-up with Dr. Guadalupe as outpatient for evaluation of being started on anticoagulation. Patient was DC'd on metoprolol 50 mg p.o. twice daily and was encouraged to follow-up with his beef cattle farm manager. Audiology consulted please refer to note. (2) Elevated troponin Denies any history of CAD. Denies any chest pain palpitation or lightheadedness. Likely due to demand mismatch. Indeterminate. Patient was started on antiplatelets, beta-blockers, MOUNA, statins. (3) Aortic valve replaced History of bicuspid aortic valve, status post aortic bioprosthetic valve replacement. Denies any chest or palpitation, denies any syncope or presyncope. Outpatient PCP and cardiology follow-up. (4) ETOH abuse Denied any history of alcohol intoxication or hospitalization for EtOH abuse. Thiamine, folic acid, multivitamin, benzodiazepines, DT precautions. (5) Diabetes Diabetic diet, sliding scale insulin, basal and prandial insulin. Accu-Chek. Hypoglycemia protocol. Advised to resume home meds upon discharge. Advised to follow-up with PCP. Physical Exam Vital Signs: Temp Pulse Resp BP Pulse Ox 98.0 F 55 L 17 127/76 H 98 11/20/19 13:35 11/20/19 13:35 11/20/19 13:35 11/20/19 13:35 11/20/19 13:35 Intake & Output 11/19/19 11/20/19 11/21/19 06:59 06:59 06:59 Intake Total 2967 877 240 Output Total 900 1250 300 Balance 7524 -206 -09 Weight 81.4 kg 82.6 kg General appearance: PRESENT: no acute distress, well-developed, well-nourished Head exam: PRESENT: atraumatic, normocephalic Neck exam: ABSENT: carotid bruit, JVD, lymphadenopathy, thyromegaly Respiratory exam: PRESENT: clear to auscultation evan. ABSENT: rales, rhonchi, wheezes Cardiovascular exam: PRESENT: irregular rhythm. ABSENT: diastolic murmur, rubs, systolic murmur GI/Abdominal exam: PRESENT: normal bowel sounds, soft. ABSENT: distended, guarding, mass, organolmegaly, rebound, tenderness Extremities exam: PRESENT: full ROM. ABSENT: calf tenderness, clubbing, pedal edema Neurological exam: PRESENT: alert, awake, oriented to person, oriented to place, oriented to time, oriented to situation, CN II-XII grossly intact. ABSENT: motor sensory deficit Results Laboratory Results: WBC 3.9 10^3/uL (4.0-10.5) L 11/20/19 08:19 RBC 3.75 10^6/uL (4.35-5.55) L 11/20/19 08:19 Hgb 12.5 g/dL (13.5-17.0) L 11/20/19 08:19 Hct 36.0 % (37.9-51.0) L 11/20/19 08:19 MCV 96 fl (80-97) 11/20/19 08:19 MCH 33.3 pg (27.0-33.4) 11/20/19 08:19 MCHC 34.7 g/dL (32.0-36.0) 11/20/19 08:19 RDW 13.9 % (11.5-14.0) 11/20/19 08:19 Plt Count 108 10^3/uL (150-450) L 11/20/19 08:19 Lymph % (Auto) 20.7 % (13-45) 11/19/19 08:00 Cloud % (Auto) 9.0 % (3-13) 11/19/19 08:00 Eos % (Auto) 0.9 % (0-6) 11/19/19 08:00 Baso % (Auto) 0.9 % (0-2) 11/19/19 08:00 Absolute Neuts (auto) 3.1 10^3/uL (1.7-8.2) 11/19/19 08:00 Absolute Lymphs (auto) 0.9 10^3/uL (0.5-4.7) 11/19/19 08:00 Absolute Monos (auto) 0.4 10^3/uL (0.1-1.4) 11/19/19 08:00 Absolute Eos (auto) 0.0 10^3/uL (0.0-0.6) 11/19/19 08:00 Absolute Basos (auto) 0.0 10^3/uL (0.0-0.2) 11/19/19 08:00 Seg Neutrophils % 68.5 % (42-78) 11/19/19 08:00 PT 14.4 SEC (11.4-15.4) 11/18/19 10:58 INR 1.10 11/18/19 10:58 APTT 32.9 SEC (23.5-35.8) 11/18/19 10:58 Sodium 138.4 mmol/L (137-145) 11/19/19 08:00 Potassium 4.1 mmol/L (3.6-5.0) 11/19/19 08:00 Chloride 107 mmol/L (98-107) 11/19/19 08:00 Carbon Dioxide 21 mmol/L (22-30) L 11/19/19 08:00 Anion Gap 10 (5-19) 11/19/19 08:00 BUN 13 mg/dL (7-20) 11/19/19 08:00 Creatinine 0.77 mg/dL (0.52-1.25) 11/19/19 08:00 Est GFR ( Amer) > 60 (>60) 11/19/19 08:00 Est GFR (MDRD) Non-Af > 60 (>60) 11/19/19 08:00 Glucose 106 mg/dL (75-110) 11/19/19 08:00 POC Glucose 115 mg/dL (70-110) H 11/20/19 12:05 Hemoglobin A1c % 6.6 % (4.7-6.0) H 11/18/19 10:58 Calcium 8.9 mg/dL (8.4-10.2) 11/19/19 08:00 Magnesium 1.6 mg/dL (1.6-2.3) 11/19/19 08:00 Total Bilirubin 1.0 mg/dL (0.2-1.3) 11/19/19 08:00 Direct Bilirubin 0.4 mg/dL (0.0-0.4) 11/19/19 08:00 Neonat Total Bilirubin Not Reportable 11/19/19 08:00 Neonat Direct Bilirubin Not Reportable 11/19/19 08:00 Neonat Indirect Bili Not Reportable 11/19/19 08:00 AST 47 U/L (17-59) 11/19/19 08:00 ALT 44 U/L (<50) 11/19/19 08:00 Alkaline Phosphatase 57 U/L (38-126) 11/19/19 08:00 Troponin I 0.028 ng/mL 11/19/19 18:39 NT-Pro-B Natriuret Pep 2260 pg/mL (<125) H 11/18/19 10:58 Total Protein 6.4 g/dL (6.3-8.2) 11/19/19 08:00 Albumin 3.8 g/dL (3.5-5.0) 11/19/19 08:00 Triglycerides 75 mg/dL (<150) 11/18/19 10:58 Cholesterol 157.37 mg/dL (0-200) 11/18/19 10:58 LDL Cholesterol Direct 88 mg/dL (<100) 11/18/19 10:58 VLDL Cholesterol 15.0 mg/dL (10-31) 11/18/19 10:58 HDL Cholesterol 60 mg/dL (>40) 11/18/19 10:58 TSH 1.07 uIU/mL (0.47-4.68) 11/18/19 10:58 TSH Cancelled 11/18/19 10:58 Urine Color YELLOW 11/19/19 06:32 Urine Appearance CLEAR 11/19/19 06:32 Urine pH 5.0 (5.0-9.0) 11/19/19 06:32 Ur Specific [place] 1.010 11/19/19 06:32 Urine Protein NEGATIVE mg/dL (NEGATIVE) 11/19/19 06:32 Urine Glucose (UA) NEGATIVE mg/dL (NEGATIVE) 11/19/19 06:32 Urine Ketones TRACE mg/dL (NEGATIVE) H 11/19/19 06:32 Urine Blood LARGE (NEGATIVE) H 11/19/19 06:32 Urine Nitrite NEGATIVE (NEGATIVE) 11/19/19 06:32 Urine Nitrite (Reflex) NEGATIVE (NEGATIVE) 11/18/19 14:58 Urine Bilirubin NEGATIVE (NEGATIVE) 11/19/19 06:32 Urine Urobilinogen NEGATIVE mg/dL (<2.0) 11/19/19 06:32 Ur Leukocyte Esterase NEGATIVE (NEGATIVE) 11/19/19 06:32 Leukocyte Esterase Rfl NEGATIVE (NEGATIVE) 11/18/19 14:58 Urine RBC (Auto) 86 /HPF 11/19/19 06:32 U Hyaline Cast (Auto) 8 /LPF 11/18/19 14:58 Urine Bacteria (Auto) TRACE /HPF 11/19/19 06:32 Urine WBC (Reflex) 1 /HPF 11/18/19 14:58 Squamous Epi Cells Auto <1 /HPF 11/18/19 14:58 Urine Mucus (Auto) RARE /LPF 11/19/19 06:32 Urine Ascorbic Acid NEGATIVE (NEGATIVE) 11/19/19 06:32 Urine Opiates Screen NEGATIVE 11/18/19 14:58 Urine Methadone Screen NEGATIVE 11/18/19 14:58 Ur Barbiturates Screen NEGATIVE 11/18/19 14:58 Ur Phencyclidine Scrn NEGATIVE 11/18/19 14:58 Ur Amphetamines Screen NEGATIVE 11/18/19 14:58 U Benzodiazepines Scrn NEGATIVE 11/18/19 14:58 Urine Cocaine Screen NEGATIVE 11/18/19 14:58 U Marijuana (THC) Screen NEGATIVE 11/18/19 14:58 Serum Alcohol < 10 mg/dL (NONE DETECTED) 11/18/19 10:58 11/18/19 11/18/19 11/19/19 10:58 18:31 18:39 Troponin I 0.042 0.041 0.028 NT-Pro-B Natriuret Pep 2260 H Impressions: Chest X-Ray 11/18/19 11:09 IMPRESSION: NO ACUTE RADIOGRAPHIC FINDING IN THE CHEST. Stroke Is this a Stroke Patient?: No Acute Heart Failure Is this a Heart Failure Patient?: No
== END 2019-11-20 13:52 | disposition home or self-care (01) ==
LOC: ER 10:34 → EH 15:53 → INTOOBSV 15:53 → 5 17:11
PROVIDERS: ADMIT Internal Medicine; ATTEND Internal Medicine
DX: I48.91 Unspecified atrial fibrillation (principal); R79.89 Other specified abnormal findings of blood chemistry; F10.10 Alcohol abuse, uncomplicated; E11.9 Type 2 diabetes mellitus without complications; E83.42 Hypomagnesemia; I10 Essential (primary) hypertension; E78.5 Hyperlipidemia, unspecified; I35.0 Nonrheumatic aortic (valve) stenosis; I71.2 Thoracic aortic aneurysm, without rupture; R42 Dizziness and giddiness; K70.10 Alcoholic hepatitis without ascites; Z95.4 Presence of other heart-valve replacement; Z23 Encounter for immunization; Z79.82 Long term (current) use of aspirin; Z79.899 Other long term (current) drug therapy; Z88.8 Allergy status to other drugs, medicaments and biological substances
CPT/HCPCS: 93005 ×2; 96376; 99291; 99292; 96375; 96365; 96366; 96368; 36415 ×3; 82962 ×3; 80307 ×2; 83735 ×2; 84443; 85025 ×2; 85027; 85610; 85730; 80053 ×2; 81001 ×2; 84484 ×2; 83036; 80061; 83880; 93306; 71045; 90686; 93010 ×2; 94640 ×2; G0378 ×4; G0008; A9270 ×25; J1160; J3490 ×6; J3475; J7030 ×2; J0153; J1650 ×2; 90471; J1815

== ENCOUNTER → 2019-11-30 | Outpatient (CLI) | payer MEDICARE ==
[2019-11-30 09:20] LABS: ABSOLUTE BASOPHILS # (AUTO) 0.1 10^3/uL (0.0-0.2); ABSOLUTE EOSINOPHILS # (AUTO) 0.1 10^3/uL (0.0-0.6); ABSOLUTE LYMPHOCYTES (AUTO) 1.1 10^3/uL (0.5-4.7); ABSOLUTE MONOCYTES (AUTO) 0.4 10^3/uL (0.1-1.4); ABSOLUTE NEUT (AUTO) 2.8 10^3/uL (1.7-8.2); BASOPHILS % (AUTO) 1.2 % (0-2); EOSINOPHILS % (AUTO) 1.5 % (0-6); HEMATOCRIT 38.7 % (37.9-51.0); HEMOGLOBIN 13.3 g/dL (13.5-17.0); LYMPHOCYTES % (AUTO) 24.7 % (13-45); MEAN CORPUSCULAR HEMOGLOBIN 32.7 pg (27.0-33.4); MEAN CORPUSCULAR HGB CONC 34.3 g/dL (32.0-36.0); MEAN CORPUSCULAR VOLUME 95 fl (80-97); MONOCYTES % (AUTO) 9.2 % (3-13); PLATELET COUNT 163 10^3/uL (150-450); RED BLOOD COUNT 4.06 10^6/uL (4.35-5.55); RED CELL DISTRIBUTION WIDTH 13.6 % (11.5-14.0); SEGMENTED NEUTROPHILS % (AUTO) 63.4 % (42-78); TOTAL CELLS COUNTED % (AUTO) 100 %; WHITE BLOOD COUNT 4.5 10^3/uL (4.0-10.5)
[2019-11-30 09:41] LABS: ANION GAP 10 (5-19); BLOOD UREA NITROGEN 18 mg/dL (7-20); CALCIUM 9.9 mg/dL (8.4-10.2); CARBON DIOXIDE 27 mmol/L (22-30); CHLORIDE 102 mmol/L (98-107); GLUCOSE 148 mg/dL (75-110); POTASSIUM 4.5 mmol/L (3.6-5.0)
== END ==
LOC: OD 08:42
PROVIDERS: ATTEND Family Medicine
DX: D75.82 Heparin induced thrombocytopenia (HIT) (principal); I48.91 Unspecified atrial fibrillation
CPT/HCPCS: 36415; 80048; 83735; 85025